=== PATIENT | female | born 1940 | race Caucasian/White ===

== ENCOUNTER 2021-02-04 12:34 | Inpatient (IN) | payer MEDICARE, OTHER, SELFPAY ==
[2021-02-04] VITALS (24 sets, daily range): BP systolic 58–149; BP diastolic 32–77; PULSE 92–118; RESP 17–32; TEMP 37.1–37.3; O2SAT 88–96; BMI 19.2
--- NOTE | 2021-02-04 12:42 | XRR_ITS ---
PROCEDURE INFORMATION: Exam: XR Chest Exam date and time: 02/04/2021 12:42 PM Age: 80 years old Clinical indication: Dyspnea; Patient HX: 80-year-old female presents emergency room altered mental status. She is found by EMS in the field report that her oxygen saturations 70% on 2 L she is poorly responsive initial blood pressure 50 over 40s. TECHNIQUE: Imaging protocol: XR of the chest. Views: 1 view. COMPARISON: CR Chest 1 [place] [id number] 08/29/2018 2:59 PM FINDINGS: Lungs: Right lung is well expanded and clear No consolidation. Pleural spaces: Unremarkable. No pleural effusion. There is a large left lung pneumothorax. Findings corresponds to 70% volume. Heart/Mediastinum: Unremarkable. No cardiomegaly. Bones/joints: Unremarkable. XR/XR chest 1V portable [id number] IMPRESSION: 1. Large left lung pneumothorax 2. Negative right lung
--- NOTE | 2021-02-04 12:42 | ECG_ITS ---
[facility] Test Date: 2021-02-04 Pat Name: Linda Whyte Department: Room: Gender: Female Bundle Collector: : 1940 Requested By: Jason Abbasi Order Number: [id number] Phil MD: Maryan Irene M.D. Measurements Intervals [place] Rate: 96 P: 79 MO: 137 QRS: 33 QRSD: 94 T: 87 QT: 361 QTc: 456 Interpretive Statements SINUS RHYTHM WITH OCCASIONAL VENTRICULAR PREMATURE COMPLEXES POSSIBLE RIGHT ATRIAL ENLARGEMENT [0.25mV P-WAVE] ANTEROSEPTAL MYOCARDIAL INFARCTION , OF INDETERMINATE AGE [40+ ms Q WAVE IN V1-V4] Compared to ECG 08/29/2018 20:20:35 Ventricular premature complex(es) now present Left-axis deviation no longer present Myocardial infarct finding still present Electronically Signed On 02-04-2021 17:51:34 AIR SHOVEL OPERATOR by Maryan Irene M.D. [id number]
--- NOTE | 2021-02-04 12:46 | ED_ITS ---
HPI - Altered Mental Status General: Chief Complaint: Altered Mental Status Stated Complaint: AMS, DIFF BREATHING Time Seen by Provider: 02/04/21 12:36 History of Present Illness: HPI narrative: 80-year-old female presents emergency room altered mental status. She is found by EMS in the field report that her oxygen saturations 70% on 2 L she is poorly responsive initial blood pressure 50 over 40s. She has fluids infusing. She is unable to give any history at this time no family members at the bedside initially. Later family members did arrive and reported that she had fallen 2 days ago. MD complaint: altered mental status and decreased responsiveness Onset (ago): day(s) Timing confirmed by: spouse Severity: severe Consistency of symptoms: Getting Worse Associated symptoms: Reports depression; Deny auditory hallucinations or visual hallucinations Review of Systems General: Reports: ROS unobtainable due to medical condition Psych: Reports: depression; Denies: visual hallucinations or auditory hallucinations PFS ED PFSH: Medical History (Updated 02/13/21 @ 07:00 by Temo Ibarra DO) Chronic kidney disease Social History (Updated 02/13/21 @ 06:53 by Temo Ibarra DO) Smoking and tobacco status: never smoked Alcohol intake: never Physical Exam Const: ORIENTATION/CONSCIOUSNESS: Yes awake, Yes oriented to person, Yes oriented to place and Yes oriented to time HENMT: COMMON NORMALS: normocephalic, atraumatic, hearing grossly normal bilaterally, external ears normal, EAC's normal, TM's normal bilaterally, Normal nasal mucous membranes and turbinates present, moist oral mucous membranes and oropharynx normal HEAD & SCALP: normocephalic and atraumatic NOSE: Normal nasal mucous membranes and turbinates present EXTERNAL EAR: Yes external ears normal EXTERNAL AUDITORY CANAL: EAC's normal TYMPANIC MEMBRANE: TM's normal bilaterally Neck/C-Spine: COMMON NORMALS: full ROM, no lymphadenopathy and supple Lymph: LYMPHATIC: no lymphadenopathy noted and no lymphedema noted Resp: AUSCULTATION: rhonchi right upper and right lower and diminished lung sounds on the left Cardio: RATE: tachycardic HEART SOUNDS: Murmur heart sound present systolic Location: right sternal border Intensity: II/ GI: COMMON NORMALS: No hepatosplenomegaly present AUSCULTATION: Yes normoactive bowel sounds PALPATION: Yes Tenderness to palpation present (GI), No Guarding due to palpation present (GI) and Yes No hepatosplenomegaly present Extremity: COMMON NORMALS: normal to inspection, capillary refill normal, no clubbing, cyanosis or edema, no calf tenderness and no pedal edema Neuro: SENSORIUM/ORIENTATION: Yes oriented to person, Yes oriented to place and Yes oriented to time Skin: COMMON NORMALS: no rashes or lesions noted GENERAL SKIN EXAM: no rashes or lesions noted Procedures Chest Tube Chest Tube 1: Chest Tube Location: left and mid axillary line Chest Tube Prep: Yes betadine prep and sterile drapes applied Local Anesthetic: lidocaine 1% Amount of anesthesia used (mL): 10 Incision Made With: #11 blade Post Procedure: sutured to skin and sterile dressing applied Tube Drainage: none Post Procedure CXR?: Yes Patient Tolerated Procedure: Yes Progress: Significant improvement in pneumothorax after placement of chest tube. Course Vital Signs: Vital signs: Vital Signs Temperature 97.5 F L 02/09/21 10:00 Pulse Rate 126 H 02/10/21 02:00 Respiratory Rate 24 H 02/10/21 02:00 Blood Pressure 108/65 02/10/21 02:00 Pulse Oximetry 97 02/10/21 02:00 MDM - Altered Mental Status MDM Narrative: Medical decision making narrative: Initially on arrival patient not to be septic was concerned she had a pneumonia chest x-ray actually showed a significant pneumothorax. Chest tube was placed in the left side which had good resolution of her pneumothorax and she did become more awake and responsive. Family arrived and reported a history of a recent fall which I suspect caused a pneumothorax. The one does to treat her but did not want her intubated. We have initiated antibiotics and IV pressors. She has received IV fluids pressure has improved. Currently she is on supplemental oxygen by mask. Suspect her deterioration acutely is related to the fall and pneumothorax with a tension pneumothorax causing hypotension and hypoxia this is resolved however I suspect she has an underlying sepsis as well as acute kidney injury. We will go ahead and admit her discussed with hospitalist orders are written. Labs and imaging reviewed liver enzymes elevated lactate 7.6. Initial troponin II 144. Lab Data: Labs: Lab Results 02/04/21 02/04/21 02/04/21 12:50 13:16 13:16 WBC RBC Hgb Hct MCV MCH MCHC RDW Plt Count MPV Neut % (Auto) Lymph % (Auto) [place] % (Auto) Eos % (Auto) Baso % (Auto) Neut # (Auto) Lymph # (Auto) [place] # (Auto) Eos # (Auto) Baso # (Auto) Nucleated RBC % (a uto) Nucleated RBCs # D-Dimer Specimen Type Arterial Sample Site Radial, right ABG pH 6.92 L* (7.35-7.45) ABG pCO2 85.4 mmHg H* mmHg (35-45) ABG pO2 133.0 mmHg H mmHg (80.0-100.0) ABG HCO3 17.6 mmol/L L mmo l/L (22-26) ABG O2 Saturation 96.5 ABG Base Excess -15.5 mmol/L L mm ol/L (-2.0-2.0) Santy Test Pos A-a O2 Gradient Not Reportable Hematocrit 33.5 % L % (37-47) Hgb O2 Saturation 94.7 % L % (95-100) Carboxyhemoglobin 0.8 %THgb %THgb (0.4-20.1) Methemoglobin 1.1 % % (0.4-1.5) Total Hemoglobin 10.9 g/dL L g/dL (12-16) Sodium 148.0 mmol/L H mm ol/L (131-143) Potassium 6.0 mmol/L H mmol /L (3.5-5.0) Glucose 81.0 mg/dL mg/dL (70-115) Ionized Calcium 1.3 mmol/L mmol/L (1.1-1.4) O2 Delivery Device Nrb O2 Liters/Min 12.0 % % Information Security ID Hensa Chloride Carbon Dioxide Anion Gap BUN Creatinine GFR Calculation Calculated Osmolal ity Lactic Acid 7.6 mmol/L H* mmo l/L (0.5-2.2) Calcium Total Bilirubin AST ALT Alkaline Phosphata se Troponin T Baselin e Troponin T 120 Min [place] Delta Troponin T Total Protein Albumin Globulin Lipase 25 U/L U/L (13-60) Influenza Type A A g Influenza Type B A g 02/04/21 02/04/21 02/04/21 13:16 13:16 13:16 WBC 19.8 10^3/uL H 10 ^3/uL (4.0-10.0) RBC 3.94 10^6/uL L 10 ^6/uL (4.1-5.3) Hgb 11.8 g/dL g/dL (11.5-15.3) Hct 39.7 % % (37.0-47.0) MCV 100.8 fl H fl (81-99) MCH 29.9 pg pg (28.0-34.0) MCHC 29.7 g/dL L g/dL (30.0-36.0) RDW 14.2 % % (12.1-15.1) Plt Count 412 10^3/cmm H 10 ^3/cmm (130-400) MPV 8.7 fL fL (7.4-10.4) Neut % (Auto) 86.4 % % Lymph % (Auto) 4.0 % % [place] % (Auto) 6.8 % % Eos % (Auto) 0.1 % % Baso % (Auto) 0.5 % % Neut # (Auto) 17.13 10^3/uL H 1 0^3/uL (1.8-7.7) Lymph # (Auto) 0.8 10^3/uL 10^3/ uL (0.8-4.8) [place] # (Auto) 1.4 10^3/uL H 10^ 3/uL (0.2-0.9) Eos # (Auto) 0.0 10^3/uL 10^3/ uL (0.0-0.8) Baso # (Auto) 0.1 10^3/uL 10^3/ uL (0.0-0.1) Nucleated RBC % (a uto) 0.1 % % Nucleated RBCs # 0.0 /100WBC /100W BC D-Dimer Specimen Type Sample Site ABG pH ABG pCO2 ABG pO2 ABG HCO3 ABG O2 Saturation ABG Base Excess Santy Test A-a O2 Gradient Hematocrit Hgb O2 Saturation Carboxyhemoglobin Methemoglobin Total Hemoglobin Sodium 146 mmol/L H mmol /L (136-145) Potassium 6.4 mmol/L H mmol /L (3.5-5.1) Glucose 85 mg/dL mg/dL (65-115) Ionized Calcium O2 Delivery Device O2 Liters/Min Information Security ID Chloride 108 mmol/L H mmol /L (98-107) Carbon Dioxide 16 mmol/L L mmol/ L (22-29) Anion Gap 28.4 H (5-19) BUN 62 mg/dL H mg/dL (8-23) Creatinine 2.5 mg/dL H mg/dL (0.5-0.9) GFR Calculation Not Reportable Calculated Osmolal ity 319 mOsm/kg H mOs m/kg (285-295) Lactic Acid Calcium 8.6 mg/dL mg/dL (8.5-10.5) Total Bilirubin 0.8 mg/dL mg/dL (0.15-1.2) AST 1889 U/L H U/L (0-32) ALT 1972 U/L H U/L (0-33) Alkaline Phosphata se 80 IU/L IU/L (35-105) Troponin T Baselin e 244 ng/L H* ng/L (0-10) Troponin T 120 Min [place] Delta Troponin T Total Protein 5.6 g/dL L g/dL (6.6-8.7) Albumin 3.5 g/dL g/dL (3.5-5.2) Globulin 2.1 g/dL g/dL (1.3-4.6) Lipase Influenza Type A A g Influenza Type B A g 02/04/21 02/04/21 02/04/21 13:30 15:34 15:34 WBC RBC Hgb Hct MCV MCH MCHC RDW Plt Count MPV Neut % (Auto) Lymph % (Auto) [place] % (Auto) Eos % (Auto) Baso % (Auto) Neut # (Auto) Lymph # (Auto) [place] # (Auto) Eos # (Auto) Baso # (Auto) Nucleated RBC % (a uto) Nucleated RBCs # D-Dimer 6.18 ug/mIFEU H u g/mIFEU (0-0.59) Specimen Type Sample Site ABG pH ABG pCO2 ABG pO2 ABG HCO3 ABG O2 Saturation ABG Base Excess Santy Test A-a O2 Gradient Hematocrit Hgb O2 Saturation Carboxyhemoglobin Methemoglobin Total Hemoglobin Sodium Potassium Glucose Ionized Calcium O2 Delivery Device O2 Liters/Min Information Security ID Chloride Carbon Dioxide Anion Gap BUN Creatinine GFR Calculation Calculated Osmolal ity Lactic Acid Calcium Total Bilirubin AST ALT Alkaline Phosphata se Troponin T Baselin e Troponin T 120 Min [place] 240.1 ng/L H ng/L (0-10) Delta Troponin T -3.9 ABS# L ABS# (0-10) Total Protein Albumin Globulin Lipase Influenza Type A A g Negative (Negative) Influenza Type B A g Negative (Negative) Critical Care Time Critical Care Time: Critical Care Time: Yes Total Critical Care Time: 45 Attestation: The high probability of a clinically significant, sudden or life threatening deterioration of the patient's [cardiorespiratory] system(s) required my full and direct attention, intervention and personal management. The critical care time is as shown. This time is in addition to time spent performing any reported procedures but includes the following: [x] Data and vital sign review and interpretation [x] Patient assessment, examination and intervention [x] Documentation [x] Medication orders and management Discharge Plan Discharge Patient Disposition: Admitted As Inpatient Admit Provider: Mason Green Clinical Impression: Tension pneumothorax, Respiratory failure with hypoxia and hypercapnia, Acute kidney injury superimposed on CKD, Elevated troponin, High transaminase levels, Metabolic acidosis, Lactic acidosis, Dementia Coding Level of Care Code ED Technical Advisor for Elsie Shearer
[2021-02-04] MEDS: sodium chloride 0.9% 1,000 ML 999 ML IV (12:49)
[2021-02-04] MEDS: vancomycin 1,000 MG in sodium chloride 0.9% 250 ML 250 MG IV ×2 (13:00→14:43)
[2021-02-04 13:03] LABS: Arterial Blood Gas Hematocrit 33.5 % (37-47); Base Excess ABG -15.5 mmol/L (-2.0-2.0); Blood Gas Allen Test Pos; Blood Gas Sample Site Radial, right; Blood Gas Sample Type Arterial; Carboxyhemoglobin 0.8 %THgb (0.4-20.1); HCO3 ABG 17.6 mmol/L (22-26); HGB O2 Sat 94.7 % (95-100); Ionized Calcium Level - ABG 1.3 mmol/L (1.1-1.4); Methemoglobin 1.1 % (0.4-1.5); Oxygen Device NRB; Oxygen Saturation ABG 96.5; Total Hemoglobin 10.9 g/dL (12-16)
--- NOTE | 2021-02-04 13:18 | PC.NURSE ---
Addendum entered by Suri Ely RN 02/04/21 18:13: Medication is Levophed Original Note: Increased by 2, rate 4mcg/min per protocol BP 90/32
[2021-02-04 13:27] LABS: Basophils # 0.1 10^3/uL (0.0-0.1); Basophils % 0.5 %; Eosinophils % 0.1 %; Hematocrit 39.7 % (37.0-47.0); Hemoglobin 11.8 g/dL (11.5-15.3); Lymphocytes # 0.8 10^3/uL (0.8-4.8); Mean Corpuscular HGB Conc 29.7 g/dL (30.0-36.0); Mean Corpuscular Hemoglobin 29.9 pg (28.0-34.0); Mean Corpuscular Volume 100.8 fl (81-99); Mean Platelet Volume 8.7 fL (7.4-10.4); Monocytes # 1.4 10^3/uL (0.2-0.9); Monocytes % 6.8 %; Neutrophils # 17.13 10^3/uL (1.8-7.7); Neutrophils % 86.4 %; Nucleated Red Blood Cells % 0.1 %; Platelet Count 412 10^3/cmm (130-400); Red Blood Count 3.94 10^6/uL (4.1-5.3); Red Cell Distribution Width 14.2 % (12.1-15.1); White Blood Count 19.8 10^3/uL (4.0-10.0)
--- NOTE | 2021-02-04 13:30 | PC.NURSE ---
Informed Dr Ibarra of BP 76/48 (57). Epi increased to 6mcg/min Dr Ibarra was pt MAP to 65
--- NOTE | 2021-02-04 13:41 | PC.NURSE ---
Increased Epi to 8mcg/min 90/54 manual BP.
--- NOTE | 2021-02-04 13:50 | PC.NURSE ---
BP 93/60 Map- 71 Epi at 8mcg/min
[2021-02-04 13:52] LABS: Albumin Level 3.5 g/dL (3.5-5.2); Alkaline Phosphatase 80 IU/L (35-105); Anion Gap 28.4 (5-19); Blood Urea Nitrogen 62 mg/dL (8-23); Calcium 8.6 mg/dL (8.5-10.5); Carbon Dioxide 16 mmol/L (22-29); Chloride 108 mmol/L (98-107); Globulin 2.1 g/dL (1.3-4.6); Glucose 85 mg/dL (65-115); Lipase 25 U/L (13-60); Osmolality Calculated 319 mOsm/kg (285-295); Potassium 6.4 mmol/L (3.5-5.1); Sodium 146 mmol/L (136-145); Total Bilirubin 0.8 mg/dL (0.15-1.2); Total Protein 5.6 g/dL (6.6-8.7)
[2021-02-04 13:54] LABS: Influenza A by IFA Negative (Negative); Influenza B by IFA Negative (Negative)
[2021-02-04 13:59] LABS: Lactic Sepsis W/Reflex 7.6 mmol/L (0.5-2.2); Troponin(5th) Baseline 244 ng/L (0-10)
[2021-02-04 14:03] LABS: Alanine Aminotransferase 1972 U/L (0-33)
[2021-02-04 14:04] LABS: Aspartate Amino Transferase 1889 U/L (0-32)
--- NOTE | 2021-02-04 14:36 | XR_ITS ---
WS: [id number] Exam: XR chest 1V portable [id number] Date/Time of Exam: 02/04/2021 2:36 PM Reason For Exam: chest tube placement Comparison with previous exam performed on the same day at 0141 hours. A left-sided chest tube is been placed and ends in the superior medial left pleural cavity. The previ ously noted left pneumothorax has resolved. There is still atelectasis noted in the left upper lobe a s well as the left lower lobe. Normal cardiomediastinal silhouette. The right lung is clear and fully expanded. Bony structures appear to be intact. XR/XR chest 1V portable [id number] IMPRESSION: 1. Resolved left-sided pneumothorax with thoracostomy tube ending in the superi or medial left pleural cavity. 2. Residual atelectasis in the upper and lower lobes of the left lung.
--- NOTE | 2021-02-04 14:42 | ECG_ITS ---
[facility] Test Date: 2021-02-04 Pat Name: Linda Whyte Department: Room: Gender: Female Facilities Painter: : 1940 Requested By: Jason Abbasi Order Number: [id number] Reading MD: Maryan Irene M.D. Measurements Intervals [place] Rate: 93 P: 86 SD: 140 QRS: 73 QRSD: 96 T: 76 QT: 356 QTc: 444 Interpretive Statements SINUS RHYTHM ANTEROSEPTAL MYOCARDIAL INFARCTION , OF INDETERMINATE AGE [40+ ms Q WAVE IN V1-V4] Compared to ECG 02/04/2021 13:32:46 Ventricular premature complex(es) no longer present Myocardial infarct finding still present Electronically Signed On 02-04-2021 17:56:15 COMPUTER SYSTEMS INFORMATION DIRECTOR by Maryan Irene M.D. [id number]
[2021-02-04] MEDS: piperacillin-tazobactam 3.375 GM in sodium chloride 0.9% (plus) 50 ML IV ×2 (14:44→20:31)
[2021-02-04] MEDS: fentaNYL 50 mcg/mL INJ 2mL 100 MCG IVP (14:44)
--- NOTE | 2021-02-04 14:45 | PC.NURSE ---
Dr Ibarra placed a 36 F Chest tube on left chest using sterile technique Pt taken off Bi PAP, put o NC at 2 lmps. Resting more comfortable.
--- NOTE | 2021-02-04 14:52 | PC.NURSE ---
Epi was stopped for procedure. Epi restarted at 1453 at 2mcg/min
--- NOTE | 2021-02-04 15:04 | PC.NURSE ---
BP 78/[address] Ibarra increased Epi to 4mgc/min.
[2021-02-04 15:09] LABS: Reflex Lactate Order REFLEX LACTIC ORDERD
[2021-02-04 16:10] LABS: D Dimer 6.18 ug/mIFEU (0-0.59)
[2021-02-04] MEDS: sodium bicarbonate 8.4% 1 mEq/mL 50mL Syr 100 MEQ IVP (16:45)
[2021-02-04] MEDS: calcium gluconate 0.1 gm/mL 10% SDV 10mL 2 GM IVP (16:45)
[2021-02-04 16:56] LABS: Troponin 5 2HR 240.1 ng/L (0-10); Troponin 5 2HR Delta -3.9 ABS# (0-10)
[2021-02-04 17:03] LABS: Lactic Acid level (Lactate) 3.7 mmol/L (0.5-2.2)
[2021-02-04 17:23] LABS: ABG PCO2 85.4 mmHg (35-45); ABG PH Result 6.92 (7.35-7.45)
--- NOTE | 2021-02-04 17:30 | PC.NURSE ---
Resting with lights off, family at bedside. Blood pressure improved 127/66 on 4 mgc/min Collected 7mls of urine
--- NOTE | 2021-02-04 17:45 | PM.HP ---
Providers/Chief Complaint Chief Complaint: AMS, DIFF BREATHING History of Present Illness Linda Whyte is a 80 year old female with no significant PMH was brought in after experiencing fall at home, upon arrival in the ER she was obtunded and was saturating was saturating in 70s was tachypenic as well as she severely hypotensive with SBP in 60s. She was worked up for aove mention complain. Pertinent Imaging studies : Xray chest : Large left lung pneumothorax, Rt lung field was normal. EKG: Sinus Rthym with PVC Pertinent Labs : WBC: 19.8T, H&H : 11.8/39.7 PLT : 412, Serum : 146, k: 6.4 , hco3: 16, BUN/SCR: 62/2.5, RBS:155, AST: 1889,ALT: 1972,ALP: 80, lactic acid: 7.6 , Troponin: Baseline : 244, 2h : 240, 2hd : -3.9 ,6h : 231 , Influenza and covid :Negative She received lt chest tube placement in the ER ,As fluid resuscitation was done as well as i.v abxs were given. Post chest tube placement xray chest :showed resolution on PTX. Review of Systems Narrative: limited due to current medical condition Card: Denies: palpitations, edema or swelling of feet/ankles Resp: Denies: wheezing or pain on inspiration GI: Denies: nausea, vomiting or diarrhea Musc: Denies: extremity pain or extremity swelling Neuro: Denies: headache(s), difficulty walking or confusion Medications/Allergies Home Medications Medication Instructions Recorded Confirmed Last Taken Type albuterol sulfate [Ventolin HFA] 2 puff INHALATION Q6H PRN 02/04/21 02/04/21 Unknown History diclofenac sodium 100 mg PO DAILY 02/04/21 02/04/21 Unknown History paroxetine HCl 30 mg PO DAILY 02/04/21 02/04/21 Unknown History potassium chloride 20 meq PO DAILY 02/04/21 02/04/21 Unknown History prednisone 20 mg PO DAILY 02/04/21 02/04/21 Unknown History Allergies Allergy/AdvReac Type Severity Reaction Status Date / Time No Known Allergies Allergy Verified 02/04/21 13:33 Vitals/I&O/Wt Last Vital Signs Temp 98.7 F 02/04/21 12:37 Pulse 113 H 02/04/21 17:00 Resp 18 02/04/21 17:00 BP 101/55 02/04/21 16:33 Pulse Ox 96 02/04/21 17:00 02/04/21 02/04/21 02/04/21 06:59 14:59 22:59 Intake Total 1428.81 / 1428.81 Balance 1428.81 / 1428.81 Weight last 48 hrs Weight 47.627 kg Physical Exam Narrative: EXAM NARRATIVE: Alert and awake HENMT: COMMON NORMALS: normocephalic and atraumatic HEAD & SCALP: normocephalic and atraumatic Chest: CHEST: Yes Symmetrical chest wall rise Resp: COMMON NORMALS: clear to auscultation bilaterally EFFORT & INSPECTION: Yes symmetric chest movement, Yes abnormal respiratory pattern, Yes tachypneic, Yes respiratory distress and Yes labored AUSCULTATION: clear to auscultation bilaterally Cardio: COMMON NORMALS: regular rate, regular rhythm, S1 normal heart sound present, S2 normal heart sound present, No gallops present (Cardio), No murmurs present (Cardio), No rub (Cardio) and Peripheral pulses 2+ throughout RATE: regular rate RHYTHM: regular rhythm HEART SOUNDS: S1 normal heart sound present and S2 normal heart sound present PERIPHERAL PULSES: Peripheral pulses 2+ throughout GI: COMMON NORMALS: Normal to inspection, nondistended, normoactive bowel sounds present, Soft to palpation, non-tender, No hepatosplenomegaly present and no masses AUSCULTATION: Yes normoactive bowel sounds PALPATION: Yes Soft to palpation and Yes No hepatosplenomegaly present RECTAL EXAM: deferred Extremity: COMMON NORMALS: no clubbing, cyanosis or edema and no pedal edema Data : 02/05/21 04:16 02/05/21 04:16 Micro: Microbiology 02/04/21 15:26 Blood Culture - Preliminary Blood SPECIMEN COLLECTED 02/04/21 15:34 Blood Culture - Preliminary Blood SPECIMEN COLLECTED A&P Assessment and plan (1) Shock: Status: Acute (2) Acute kidney injury superimposed on CKD: Status: Acute (3) Respiratory failure with hypoxia and hypercapnia: Status: Acute (4) Pneumothorax: Status: Acute (5) Elevated troponin: Status: Acute (6) High transaminase levels: Status: Acute (7) Metabolic acidosis: Status: Acute (8) Lactic acidosis: Status: Acute (9) Hypernatremia: Status: Acute (10) Acute metabolic encephalopathy: Status: Acute (11) Rhabdomyolysis: Status: Acute Additional A&P Information 80 year old female with no significant PMH was brought in after experiencing fall at home, upon arrival in the ER she was obtunded and was saturating was saturating in 70s was tachypenic as well as she severely hypotensive with SBP in 60s. #Shock : 2/2 Tension pneumothorax, as well as hypovolemic shock, cannot rule out possible contribution from sepsis. Follow blood culture Urine culture Lactic acid Procalcitonin Monitor serial chest x-ray S/p right chest tube placement, continue with IV hydration Currently on broad-spectrum antibiotics Continue Levophed for now #LAN on CKD stage III: Multifactorial, ATN secondary to acute hypotension, prerenal, rhabdomyolysis Continue IV hydration Monitor intake output Urine electrolytes Monitor BMP Renal ultrasound Avoid nephrotoxic Catheter in place Possible renal consult #Respiratory failure with hypoxia and hypercapnia: Secondary to tension pneumothorax #Acute metabolic encephalopathy with hypercapnia #Lactic acidosis: Possibly secondary to severe hypotension, acute ischemia mediated, cannot conclusively rule out contribution from sepsis #Mixed acidosis: Metabolic as well as respiratory: #Transaminitis: Follow ultrasound abdomen Hepatitis panel Some contribution from rhabdomyolysis As well as from LAN #Hypovolemic hypernatremia: Continue IV hydration with D5 half NS at 125 cc an hour #Rhabdomyolysis: Likely secondary to fall #Elevated troponin: Likely secondary to demand ischemia type II HI. No acute ST-T wave changes Follow 2D echo Telemetry monitoring Code Status:AND DVT PPX: On Heparin Attestations Medical Necessity Statement*: Patient needs to be in hospital for the management of shock.Anticipated LOS Greater then 2 Midnights. Time Spent in Patient Care: Greater than 35 minutes Critical Care Time: Critical Care Time (min): 100 Other Attestations: The high probability of a clinically significant, sudden or life threatening deterioration of the patient's [] system(s) required my full and direct attention, intervention and personal management. The critical care time is as shown. This time is in addition to time spent performing any reported procedures but includes the following: [x] Data and vital sign review and interpretation [x] Patient assessment, examination and intervention [x] Documentation [x] Medication orders and management Coding Level of Care Code Acute Motor Vehicle Or Caravan Salesperson for [facility] Fwd Exam Detailed Diagnoses Shock R57.9 Acute kidney injury superimposed on CKD N17.9; N18.9 Respiratory failure with hypoxia and hypercapnia J96.91; J96.92 Pneumothorax J93.9 Elevated troponin R77.8 High transaminase levels R74.01 Metabolic acidosis E87.2 Lactic acidosis E87.2 Hypernatremia E87.0 Acute metabolic encephalopathy G93.41 Rhabdomyolysis M62.82
[2021-02-04] MEDS: morphine 4 mg/mL SDV 1 mL 2 MG IVP (17:51)
[2021-02-04] MEDS: sodium chloride 0.9% 1,000 ML 100 ML IV (18:01)
[2021-02-04 18:10] LABS: Glucose Urine UA Norm (Normal); Protein Urine 3+ (Negative); Urine Appearance Hazy (CLEAR); Urine Color Yellow (Yellow); pH Urine 5 (5-7)
[2021-02-04 18:11] LABS: Add Urine Culture? Yes; Add Urine Microscopic? YES; Amorphous Sediment Urine 3+ /hpf; Bacteria Urine 2+ /hpf; Bilirubin Urine 1+ (Negative); Blood Urine 3+ (Negative); Ketones Urine Negative (Negative); Leukocyte Esterase Urine 1+ (Negative); Nitrate Urine Negative (Negative); RBC Urine 0-4 /hpf (0-2); Squamous Epithelial Cell Urine 0-4 /hpf (0-5); Urobilinogen Urine 1 mg/dL (Negative); WBC Urine 55-80 /hpf (0-5)
--- NOTE | 2021-02-04 18:12 | PC.NURSE ---
The medication that pt is on Levophed, NOT and Epi drip
--- NOTE | 2021-02-04 18:45 | PC.NURSE ---
1830 Pt arrived to ICU per stretcher with ER nurse at bedside. Connected to monitor, CT secured to floor and unclamped and connected to LWS per report from ER nurse. Report given to oncoming nurse.
--- NOTE | 2021-02-04 19:00 | PC.NURSE ---
[facility] Admission assessments completed. Patient is oriented to person only and is lethargic. All vital signs are stable at this time. Patient is tachycardic in the low 100's. Marie catheter in place and draining well. Left chest tube in place and connected to suction. Fluctuation present with respirations. Patient is resting calmly in bed.
[2021-02-04 19:06] LABS: Adenovirus Not Detected (NOT DETECT); Chlamydia Pneumoniae Not Detected (NOT DETECT); Coronavirus 229E,HKU1,NL63,OC4 Not Detected (NOT DETECT); Human Metapneumovirus Not Detected (NOT DETECT); Human Rhinovirus/Enterovirus Not Detected (NOT DETECT); Influenza A Not Detected (NOT DETECT); Influenza A H1 Not Detected (NOT DETECT); Influenza A H1-2009 Not Detected (NOT DETECT); Influenza A H3 Not Detected (NOT DETECT); Influenza B Not Detected (NOT DETECT); Mycoplasma Pneumoniae Not Detected (NOT DETECT); Parainfluenza Virus Type 1 Not Detected (NOT DETECT); Parainfluenza Virus Type 2 Not Detected (NOT DETECT); Parainfluenza Virus Type 3 Not Detected (NOT DETECT); Parainfluenza Virus Type 4 Not Detected (NOT DETECT); Respiratory Syncytial Virus A Not Detected (NOT DETECT); Respiratory Syncytial Virus B Not Detected (NOT DETECT); SARS-COV-2 Not Detected (NOT DETECT)
[2021-02-04 19:56] LABS: Anion Gap 27.1 (5-19); Blood Urea Nitrogen 65 mg/dL (8-23); Calcium 8.2 mg/dL (8.5-10.5); Carbon Dioxide 15 mmol/L (22-29); Chloride 111 mmol/L (98-107); Glucose 155 mg/dL (65-115); Osmolality Calculated 328 mOsm/kg (285-295); Potassium 5.1 mmol/L (3.5-5.1); Sodium 148 mmol/L (136-145)
[2021-02-04 20:00] LABS: Lactate (Lactic Acid level) 4.1 mmol/L (0.5-2.2); Troponin 5 6HR Delta -12.6 ng/L (0-12)
[2021-02-04 20:01] LABS: Troponin 5 6HR 231.4 ng/L (0-10)
[2021-02-04] MEDS: dextrose 5%-sod chloride 0.45% 1,000 ML 100 ML IV (20:23)
--- NOTE | 2021-02-04 20:45 | PC.NURSE ---
Dr. Pleitez notified of patient's lab results. Telephone order read back to hold insulin, d50, and kayelalate. Performed.
[2021-02-04 22:14] LABS: Anion Gap 23.8 (5-19); Blood Urea Nitrogen 69 mg/dL (8-23); Calcium 8.1 mg/dL (8.5-10.5); Carbon Dioxide 17 mmol/L (22-29); Chloride 111 mmol/L (98-107); Glucose 172 mg/dL (65-115); Osmolality Calculated 328 mOsm/kg (285-295); Potassium 4.8 mmol/L (3.5-5.1); Sodium 147 mmol/L (136-145)
[2021-02-05] VITALS (52 sets, daily range): BP systolic 112–170; BP diastolic 62–101; PULSE 103–117; RESP 16–33; TEMP 36.6–37.2; O2SAT 69–99
--- NOTE | 2021-02-05 02:06 | PC.NURSE ---
Patient continues to rest calmly in bed. All vital signs are stable. Patient remains tachycardic in the low 100's. Patient arouses with stimuli and is oriented to person and knows that she is in the hospital, but is unable to answer any other questions.
--- NOTE | 2021-02-05 05:00 | XRR_ITS ---
PROCEDURE INFORMATION: Exam: XR Chest Exam date and time: 02/05/2021 5:00 AM Age: 80 years old Clinical indication: Device placement; Patient HX: F/u left chest tube placement. ; Additional info: S/P lt chest tube placement for ptx TECHNIQUE: Imaging protocol: XR of the chest. Views: 1 view. COMPARISON: CR XR chest 1V portable [id number] 02/04/2021 2:32 PM FINDINGS: Tubes, catheters and devices: Thoracotomy tube on the left directed to the apex. Subtle airspace disease adjacent to the thoracotomy tube. No appreciable pneumothorax. Mild subcutaneous emphysema. Lungs: See Tubes, catheters and devices finding. Pleural spaces: See Tubes, catheters and devices finding. Heart/Mediastinum: Unremarkable. No cardiomegaly. Bones/joints: Unremarkable. XR/XR chest 1V portable [id number] IMPRESSION: Thoracotomy tube on the left directed to the apex. Subtle airspace disease adjacent to the thoracotomy tube. No appreciable pneumothorax. Mild subcutaneous emphysema.
[2021-02-05 05:15] LABS: Hematocrit 36.4 % (37.0-47.0); Hemoglobin 11.1 g/dL (11.5-15.3); Mean Corpuscular HGB Conc 30.5 g/dL (30.0-36.0); Mean Corpuscular Hemoglobin 29.8 pg (28.0-34.0); Mean Corpuscular Volume 97.6 fl (81-99); Mean Platelet Volume 9.4 fL (7.4-10.4); Platelet Count 288 10^3/cmm (130-400); Red Blood Count 3.73 10^6/uL (4.1-5.3); Red Cell Distribution Width 14.3 % (12.1-15.1)
[2021-02-05] MEDS: piperacillin-tazobactam 3.375 GM in sodium chloride 0.9% (plus) 50 ML IV ×2 (05:34→16:52)
[2021-02-05 05:46] LABS: Procalcitonin 6.31 ng/mL (0-0.5)
[2021-02-05 05:48] LABS: Lactic Sepsis W/Reflex 3.4 mmol/L (0.5-2.2)
[2021-02-05 05:51] LABS: Albumin Level 2.9 g/dL (3.5-5.2); Alkaline Phosphatase 78 IU/L (35-105); Anion Gap 24.9 (5-19); Calcium 8.1 mg/dL (8.5-10.5); Carbon Dioxide 16 mmol/L (22-29); Chloride 110 mmol/L (98-107); Glucose 151 mg/dL (65-115); Osmolality Calculated 330 mOsm/kg (285-295); Potassium 4.9 mmol/L (3.5-5.1); Sodium 146 mmol/L (136-145); Total Bilirubin 0.7 mg/dL (0.15-1.2); Total Protein 4.9 g/dL (6.6-8.7)
[2021-02-05 05:56] LABS: Blood Urea Nitrogen 83 mg/dL (8-23)
[2021-02-05 06:08] LABS: Alanine Aminotransferase 4140 U/L (0-33); Aspartate Amino Transferase 6550 U/L (0-32); Creatine Phosphokinase 2531 U/L (26-192)
[2021-02-05 06:31] LABS: Slide Review Slide Review Perform
[2021-02-05 06:33] LABS: Absolute Segmented Neutrophil 2.3 10/cmm (1.6-7.1); Anisocytosis 1+; Band Neutrophils Absolute 8.8 10^3/cmm (0.0-1.2); Eosinophils 0 %; Giant Platelets Trace; Lymphocytes 6 %; Lymphocytes Absolute 0.7 10^3/cmm (1.2-3.4); Platelet Estimate Normal (Normal); Segmented Neutrophils 19 %; Total Cells Counted 100 (0-100)
[2021-02-05 06:44] LABS: Reflex Lactate Order REFLEX LACTIC ORDERD
--- NOTE | 2021-02-05 07:10 | PC.NURSE ---
Report received, assessment completed. Pt resting in bed, pulled off leads. Leads and stickers replaced. Pt alert and oriented to self and place. Reoriented PRN. VSS. Pt able to follow all commands. smith cath draining freely to BSD. O2@4LNC. Denies any pain or SOB. Will monitor.
[2021-02-05 07:46] LABS: Lactic Acid level (Lactate) 2.2 mmol/L (0.5-2.2)
[2021-02-05] MEDS: sodium bicarbonate 650 mg Tablet 1300 MG PO ×3 (08:33→21:15)
[2021-02-05] MEDS: dextrose 5%-sod chloride 0.45% 1,000 ML 150 ML IV (09:17)
--- NOTE | 2021-02-05 09:58 | PC.CHAP ---
Pastoral Care Encounter/Spiritual Assessment Type of Contact [] Declined ship rigger apprentice visit [] Patient/Family/Request visit [] Outpatient visit [] Follow-up visit [] Physician referral [] Code/Alert [x] Routine visit [] Staff referral [] Actively dying [] Patient sleeping [x] Family support [] [] Out of room [] Palliative care [] [] Receiving care in room [] Pre-surgical visit [] Trauma [] Long length of stay [x] ICU visit [x] Other: patient not responsive to conversation.. family present.. doesnt like to be covered.. Relational/Emotional Strength [] Patient feels connected with others/family/visitors/staff [] Distress [] Loneliness/isolation [] Abandonment Spirituality of Patient [] Person of Malou [] Attends Alevism of their Malou [] Believes in Prayer [] Reads Bible or Pentecostalism materials [] There are Spiritual issues to be addressed Pattern Repair Person Interventions [x] Prayer [] Active listening [] Non-anxious presence [] Spiritual/emotional support [] Crisis/trauma care [] Spiritual counseling [] Bereavement support [] Provided bereavement packet [] Provided Bible/devotional materials [] Provided toy/stuffed animal, coloring book to patient or family member [] Provided Communion [] Anointing/[place] [] Salvation [x] Completed spiritual assessment [] Other: Impact on Illness or Injury [] Angry [] Fearful [] Anxious [] Often cries [] Exhaustion [] Unable to work [] Unable to attend pentecostal [] Unable to walk/stand [] Unable to read [] Unable to drive [] Unable to eat/drink [] Unable to sleep [] Unable to be with family [] Patient intubated [] Other: Summary Time spent with patient
[2021-02-05] MEDS: FUROsemide 10 mg/mL SDV 4mL 40 MG IVP (11:49)
[2021-02-05 12:48] LABS: Calcium 7.5 mg/dL (8.5-10.5); Carbon Dioxide 17 mmol/L (22-29); Chloride 108 mmol/L (98-107); Glucose 160 mg/dL (65-115); Osmolality Calculated 329 mOsm/kg (285-295); Sodium 144 mmol/L (136-145)
[2021-02-05 12:51] LABS: Blood Urea Nitrogen 91 mg/dL (8-23)
[2021-02-05 13:05] LABS: Creatine Phosphokinase 2618 U/L (26-192)
--- NOTE | 2021-02-05 13:23 | PM.PN ---
Subjective Subjective: Interval history: Patient was seen and examined this morning, continues to be critically ill, very poor urine output overnight, BUN serum creatinine has worsened, patient does shows uremic encephalopathy, Minimal bubbling noted in Pleur-evac. A.m. chest x-ray: No pneumothorax, minimal subcutaneous emphysema. A.m. ABG: pH 7.32, PCO2 40, PO2 83.3, FiO2 36% AST ALT has worsened, CPK is high 2D echo done: Results reviewed, ultrasound abdomen done: Reviewed Medications: Reviewed: Yes Vitals/I&O/Wt Last Vital Signs Temp 98.1 F 02/05/21 08:00 Pulse 116 H 02/05/21 08:30 Resp 24 H 02/05/21 08:30 BP 146/87 02/05/21 08:30 Pulse Ox 91 02/05/21 08:30 02/04/21 02/05/21 02/05/21 22:59 06:59 14:59 Intake Total 1784.944 / 5596.841 1024 / 3834.944 1135 / 1135 Output Total 100 / 100 25 / 125 Balance 1684.944 / 3268.047 0078 / 3709.944 1135 / 1135 Weight last 48 hrs Weight 47.627 kg Weight 47.627 kg Physical Exam Narrative: EXAM NARRATIVE: Alert and awake HENMT: COMMON NORMALS: normocephalic and atraumatic HEAD & SCALP: normocephalic and atraumatic Chest: CHEST: Yes Symmetrical chest wall rise Resp: EFFORT & INSPECTION: Yes symmetric chest movement, Yes abnormal respiratory pattern, Yes tachypneic, Yes respiratory distress and Yes labored OTHER: Coarse breath sounds B/L Cardio: COMMON NORMALS: regular rate, regular rhythm, S1 normal heart sound present, S2 normal heart sound present, No gallops present (Cardio), No murmurs present (Cardio), No rub (Cardio) and Peripheral pulses 2+ throughout RATE: regular rate RHYTHM: regular rhythm HEART SOUNDS: S1 normal heart sound present and S2 normal heart sound present PERIPHERAL PULSES: Peripheral pulses 2+ throughout GI: COMMON NORMALS: Normal to inspection, nondistended, normoactive bowel sounds present, Soft to palpation, non-tender, No hepatosplenomegaly present and no masses AUSCULTATION: Yes normoactive bowel sounds PALPATION: Yes Soft to palpation and Yes No hepatosplenomegaly present RECTAL EXAM: deferred Extremity: COMMON NORMALS: no clubbing, cyanosis or edema and no pedal edema Urinary Catheter Management^: Marie: Cath Placed During This Visit: yes Reason for Continuing Indwelling Catheter: Accurate Measurement of Urinary Output in Critically Ill Patients Urinary Catheter Date of Insertion: 02/04/21 Data : 02/05/21 04:16 02/05/21 12:03 Micro: Microbiology 02/04/21 15:26 Blood Culture - Preliminary Blood SPECIMEN COLLECTED 02/04/21 15:34 Blood Culture - Preliminary Blood SPECIMEN COLLECTED A&P Assessment and plan (1) Shock: Status: Acute (2) Acute kidney injury superimposed on CKD: Status: Acute (3) Respiratory failure with hypoxia and hypercapnia: Status: Acute (4) Pneumothorax: Status: Acute (5) Elevated troponin: Status: Acute (6) High transaminase levels: Status: Acute (7) Metabolic acidosis: Status: Acute (8) Lactic acidosis: Status: Acute (9) Hypernatremia: Status: Acute (10) Acute metabolic encephalopathy: Status: Acute (11) Rhabdomyolysis: Status: Acute Additional A&P Information 80 year old female with no significant PMH was brought in after experiencing fall at home, upon arrival in the ER she was obtunded and was saturating was saturating in 70s was tachypenic as well as she severely hypotensive with SBP in 60s. #Shock : 2/2 Tension pneumothorax, as well as hypovolemic shock, cannot rule out possible contribution from sepsis. Follow blood culture Urine culture Lactic acid Procalcitonin Monitor serial chest x-ray S/p right chest tube placement, continue with IV hydration Currently on broad-spectrum antibiotics Continue Levophed for now #LAN on CKD stage III: Multifactorial, ATN secondary to acute hypotension, prerenal, rhabdomyolysis Continue IV hydration Monitor intake output Urine electrolytes Monitor BMP Renal ultrasound Avoid nephrotoxic Catheter in place Possible renal consult #Respiratory failure with hypoxia and hypercapnia: Secondary to tension pneumothorax #Acute metabolic encephalopathy with hypercapnia, uremia #Lactic acidosis: Possibly secondary to severe hypotension, acute ischemia mediated, cannot conclusively rule out contribution from sepsis #Metabolic Acidosis: Secondary to LAN #Transaminitis: Follow ultrasound abdomen Hepatitis panel Some contribution from rhabdomyolysis As well as from LAN #Hypovolemic hypernatremia: Continue IV hydration with D5 half NS at 125 cc an hour #Rhabdomyolysis: Likely secondary to fall #Elevated troponin: Likely secondary to demand ischemia type II DE. No acute ST-T wave changes Follow 2D echo Telemetry monitoring Code Status:AND DVT PPX: On Heparin Attestations Medical Necessity Statement*: Patient is to be in hospital for management of above defined problems. Time Spent in Patient Care: Greater than 35 minutes Critical Care Time: Critical Care Time (min): 60 Other Attestations: The high probability of a clinically significant, sudden or life threatening deterioration of the patient's [] system(s) required my full and direct attention, intervention and personal management. The critical care time is as shown. This time is in addition to time spent performing any reported procedures but includes the following: [x] Data and vital sign review and interpretation [x] Patient assessment, examination and intervention [x] Documentation [x] Medication orders and management Coding Level of Care Code Acute Cable Television Program Director for g Fwd Exam Detailed Diagnoses Shock R57.9 Acute kidney injury superimposed on CKD N17.9; N18.9 Respiratory failure with hypoxia and hypercapnia J96.91; J96.92 Pneumothorax J93.9 Elevated troponin R77.8 High transaminase levels R74.01 Metabolic acidosis E87.2 Lactic acidosis E87.2 Hypernatremia E87.0 Acute metabolic encephalopathy G93.41 Rhabdomyolysis M62.82
--- NOTE | 2021-02-05 13:47 | P.CONIM_ITS ---
Providers/Reason For Consult Consulting Physician/Specialty*: milly leal md/ telenephrology Reason for Consult*: LAN Requesting Physician: Mason Green MD Attending Physician: Mason Green MD History of Present Illness History of Present Illness Linda Whyte is a 80 year old female admitted yesterdy w/ hypotension, confused, tachycardic, hypoxic. Pt ws admitted and dx w/ a tension pneumothorax. had a chest tube. she developed LAN, inc lfts. she required pressers. renal is called as she is confused, oliguric, and rising bun and cr. her bp has improved and she is off of pressers. she was first given fluids then lasix. she was found to hve rhabdomyolysis w/ ck approx 2600, Likely secondary to fall mild troop elevation. Review of Systems General: Reports: 10 or more systems reviewed and unremarkable except in HPI and below and ROS unobtainable due to mental status Narrative: confused, weak, sob, disoriented, cp, incontinence. not eating wel. she was on a NSAID at home. Meds/Allergies Home Medications and Allergies Home Medications Medication Instructions Recorded Confirmed Last Taken Type albuterol sulfate [Ventolin HFA] 2 puff INHALATION Q6H PRN 02/04/21 02/04/21 Unknown History diclofenac sodium 100 mg PO DAILY 02/04/21 02/04/21 Unknown History paroxetine HCl 30 mg PO DAILY 02/04/21 02/04/21 Unknown History potassium chloride 20 meq PO DAILY 02/04/21 02/04/21 Unknown History prednisone 20 mg PO DAILY 02/04/21 02/04/21 Unknown History Allergies Allergy/AdvReac Type Severity Reaction Status Date / Time No Known Allergies Allergy Verified 02/04/21 13:33 Current Medications Current Medications Generic Name Dose Route Start Last Admin Trade Name Freq PRN Reason Stop Dose Admin Norepinephrine Bitartrate 4 mg 254 mls @ 0 mls/hr 02/04/21 12:45 02/04/21 20:25 / Dextrose IV 0 mcg/min .Q0M ROSSY 0 mls/hr Titration Protocol Per Protocol Dextrose/Sodium Chloride 1,000 mls @ 125 mls/hr 02/04/21 17:30 02/05/21 11:15 Dextrose 5%-Sod Chloride 0.45% IV 125 mls/hr .Q8H ROSSY Infusion Piperacillin Sod/Tazobactam 50 mls @ 12.5 mls/hr 02/04/21 17:45 02/05/21 09:03 Sod 3.375 gm/ Sodium Chloride IV Infused Q12H ROSSY Infusion Protocol Morphine Sulfate 2 mg 02/04/21 16:57 02/04/21 17:51 Morphine 4 Mg/Ml Sdv 1 Ml IVP 2 mg Q4H PRN Administration SEVERE PAIN Sodium Bicarbonate 1,300 mg 02/05/21 09:00 02/05/21 08:33 Sodium Bicarbonate 650 Mg Tablet PO 1,300 mg TID ROSSY Administration Vitals/I&O/Wt Last Vital Signs Temp 98.1 F 02/05/21 08:00 Pulse 113 H 02/05/21 13:00 Resp 20 H 02/05/21 13:00 BP 147/94 02/05/21 13:00 Pulse Ox 91 02/05/21 13:00 02/04/21 02/05/21 02/05/21 22:59 06:59 14:59 Intake Total 1784.944 / 4682.033 6551 / 3834.944 1195 / 1195 Output Total 100 / 100 25 / 125 200 / 200 Balance 1684.944 / 6175.967 5516 / 3709.944 995 / 995 Weight last 48 hrs Weight 47.627 kg Weight 47.627 kg Physical Exam Narrative: EXAM NARRATIVE: ill, thin, female confused in bed in icu- she removed her oxygen, no pressers heent- eomi neck supple lungs chest tube, wheezes, crackles heart reg, + s1, s2 abd soft, nt, nd ext no edema neuro- confused Urinary Catheter Management^: Marie: Cath Placed During This Visit: yes Reason for Continuing Indwelling Catheter: Accurate Measurement of Urinary Output in Critically Ill Patients Urinary Catheter Date of Insertion: 02/04/21 Data Micro: Micro: Microbiology 02/04/21 15:26 Blood Culture - Pr eliminary Blood SPECIMEN JULI DEON 02/04/21 15:34 Blood Culture - Pr eliminary Blood SPECIMEN NICKY DEON A&P Additional A&P Information 80 year old female admitted on 02/04/21 after fall at home. she ws in shock on admission- s/p chest tube, fluids, bx. 1.LAN - normal renl fxn in pat -u/ noted- rbc, wbc, bcteria- q uti -send off serologies for possible RPGN -more likely ATN from hypotension -check renal us -ck is not high enough to cause ki Monitor intake output -monitor chemistries Avoid nephrotoxic Catheter in place -check abg -cont lasix -if severe acidosis- 7.3//80- monitor lasix. -i discussed risks and benefits of dialysis w/ pts husbnd and he consents -no emergent need for HD, and recent studies show no benefit to erly dialysis i nitiation 2. hypercapneic resp cidosis- repeat abg improoving 3. ams- check ammonia level 4 Transaminitis:likely shocked liver 5. Rhabdomyolysis: Likely secondary to fall -ck stable Consult Attestations Medical Necessity Statement: multi-organ failure Time Spent in Patient Care: Greater than 35 minutes (>than 50% of time spent in counselling and/or direct pt care on unit) . Coding Level of Care Code Acute Drain Tiler for Elsie Shearer
[2021-02-05 13:54] LABS: ABG PCO2 40.3 mmHg (35-45); ABG PH Result 7.32 (7.35-7.45); Alveolar-Arterial Oxygen Gradi 16.1 mmHg (5-10); Base Excess ABG -5.1 mmol/L (-2.0-2.0); Blood Gas Allen Test Pos; Blood Gas Operator Identificat BD; Blood Gas Sample Site Brachial, right; Blood Gas Sample Type Arterial; Carboxyhemoglobin 0.5 %THgb (0.4-20.1); HCO3 ABG 20.7 mmol/L (22-26); HGB O2 Sat 94.1 % (95-100); Ionized Calcium Level - ABG 1.1 mmol/L (1.1-1.4); Methemoglobin 1.1 % (0.4-1.5); Oxygen Device NC; Oxygen Saturation ABG 95.6; PO2 ABG 83.3 mmHg (80.0-100.0); Potassium Level - ABG 4.7 mmol/L (3.5-5.0); Total Hemoglobin 11.4 g/dL (12-16)
[2021-02-05] MEDS: FUROsemide 10 mg/mL SDV 10mL 60 MG IVP (14:37)
[2021-02-05 14:53] LABS: Uric Acid 12.6 mg/dL (2.4-5.7)
[2021-02-05 14:59] LABS: Hepatitis C Virus Antibody Non-Reactive (Nonreactive)
[2021-02-05 16:29] LABS: Potassium, Radom Urine 39 mmol/L; Urine Random Chloride 116 mmol/L; Urine Random Sodium 102 mmol/L
[2021-02-05] MEDS: heparin 5,000 unit/mL INJ 1 mL 5000 UNIT SUBCUT (16:52)
[2021-02-05] MEDS: dextrose 5%-sod chloride 0.45% 1,000 ML 125 ML IV (16:52)
--- NOTE | 2021-02-05 17:32 | PC.NURSE ---
Shift Note Frequent safety and comfort rounds continue. Orders and/or nursing care completed as indicated. Patient monitored for response to intervention and treatment(s). Education provided includes treatment plan including the possibility of dialysis, medications and need for continued hospitalization. and daughter verbalize understanding. VSS. Pt alert and oriented to self and place. reoriented PRN. Marie cath draining clear, light huang urine to BSD. Pt denies pain or SOB, lung sounds crackles noted throughout. MD aware and treating with IV Lasix. no other issues noted. Will continue to monitor.
--- NOTE | 2021-02-05 17:42 | US_ITS ---
WS: [id number] RIGHT UPPER QUADRANT ULTRASOUND HISTORY: ABNORMAL LIVER FUNCTION TEST COMPARISON: 08/29/2018 Liver: 13.5 cm in length. Small shrunken liver. Surface of the liver is very slightly nodular, simila r to the prior study. Suggesting early changes of cirrhosis. No mass or bile duct dilatation. Portal Vein: Normal hepatopetal flow with monophasic waveform. Gallbladder: Moderately distended gallbladder. Similar to the prior study. No wall thickening. No sto alan identified. CBD: 0.3 cm Pancreas: Poorly visualized. Right kidney: 9.9 cm in length. Mild renal atrophy and cortical thinning. No mass or hydronephrosis. Aorta and IVC: Unremarkable abdominal aorta and IVC. No ascites. US/US abdomen limited [id number] IMPRESSION: 1. Mildly hydropic gallbladder with no evidence for acute cholecystitis or wal l thickening. 2. No bile duct dilatation. 3. Early changes of mild cirrhosis identified. 4. Mild RIGHT renal atrophy.
[2021-02-05 18:29] LABS: Anion Gap 24.1 (5-19); Calcium 7.4 mg/dL (8.5-10.5); Carbon Dioxide 18 mmol/L (22-29); Chloride 110 mmol/L (98-107); Glucose 153 mg/dL (65-115); Osmolality Calculated 336 mOsm/kg (285-295); Potassium 5.1 mmol/L (3.5-5.1); Sodium 147 mmol/L (136-145)
[2021-02-05 18:35] LABS: Blood Urea Nitrogen 93 mg/dL (8-23)
--- NOTE | 2021-02-05 18:42 | USCV_ITS ---
Linda Whyte Age: 80 Gender: F : 1940 Exam Date: 02/05/2021 06:20 Ordering Phys: Mason Green MD Technologist: Exam Location: [facility] [place] Indication: SOB BP: 120 / 101 HR: 107 Rhythm: Sinus Technical Quality: Technically difficult study MEASUREMENTS (Male / Female) Normal Values 2D ECHO LV Diastolic Diameter PLAX 3.2 cm 4.2 - 5.9 / 3.9 - 5.3 cm LV Systolic Diameter PLAX 2.0 cm IVS Diastolic Thickness 0.9 cm 0.6 - 1.0 / 0.6 - 0.9 cm IVS Systolic Thickness 1.1 cm LVPW Diastolic Thickness 1.2 cm 0.6 - 1.0 / 0.6 - 0.9 cm LVPW Systolic Thickness 1.3 cm LVOT Diameter 2.0 cm LV Ejection Fraction 2D Teich 69.2 % LA Diameter 3.1 cm DOPPLER AV Peak Velocity 139.3 cm/s LVOT Peak Velocity 95.0 cm/s AV Area Cont Eq vti 2.7 cm squared AV Area Cont Eq pk 2.2 cm squared MV Area PHT 5.0 cm squared Mitral E to A Ratio 0.7 MV E' Velocity 48.0 cm/s TR Peak Velocity 325.0 cm/s TR Peak Gradient 42.3 mmHg TV Peak E Velocity 87.0 cm/s Right Atrial Pressure 3.0 mmHg Pulmonary Artery Systolic Pressu 45.3 mmHg FINDINGS Left Ventricle Limited quality echocardiogram because of poor ultrasonic windows. Grossly LV systolic function is normal. Diastolic function cannot be assessed because of tachycardia. Right Ventricle RV is dilated Right Atrium Grossly normal Left Atrium Grossly normal Mitral Valve Grossly normal Aortic Valve Grossly normal Tricuspid Valve Grossly normal. Mild tricuspid regurgitation. RVSP is 45-50mmhg that is consistent with moderate pulmonary hypertension Pulmonic Valve Not visualized Pericardium Trace pericardial effusion Aorta Grossly normal CONCLUSIONS This is technically limited quality echocardiogram because of poor ultrasonic windows. Grossly LV systolic function is normal. RV is dilated. No gross valvular abnormalities seen however limited visualization. Mild tricuspid regurgitation. RVSP is 45 to 50 mmHg consistent with moderate pulmonary hypertension. No comparison studies are available Raphael Richardson MD (Electronically Signed) Final Date: 05 February 2021 12:16 S
[2021-02-05 18:52] LABS: Creatine Phosphokinase 2492 U/L (26-192)
--- NOTE | 2021-02-05 19:57 | PC.NURSE ---
Report received from kadie WILSON. Patient is resting in bed with her family member at the bedside. Patient is tachycardic in the 110's and all other vital signs are stable. Marie catheter in place and draining well with clear pale yellow urine. IV fluids and zosyn infusing to R FA 20g. Left chest tube in place and tidaling present with respirations. Patient states that she is tired and just wants to rest. Patient denies any pain or requests at this time.
[2021-02-06] VITALS (40 sets, daily range): BP systolic 102–175; BP diastolic 63–120; PULSE 88–109; RESP 13–30; TEMP 36.7–36.8; O2SAT 78–98
--- NOTE | 2021-02-06 00:34 | PC.NURSE ---
SHIFT NOTE Patient resting in bed at this time. Patient denies any pain, needs, or requests. Patient is tachycardic in the 100's. All other vital signs are stable.
[2021-02-06 00:52] LABS: Anion Gap 23.5 (5-19); Calcium 7.2 mg/dL (8.5-10.5); Carbon Dioxide 19 mmol/L (22-29); Chloride 109 mmol/L (98-107); Glucose 143 mg/dL (65-115); Osmolality Calculated 333 mOsm/kg (285-295); Potassium 4.5 mmol/L (3.5-5.1); Sodium 147 mmol/L (136-145)
[2021-02-06 00:55] LABS: Blood Urea Nitrogen 88 mg/dL (8-23)
[2021-02-06 00:56] LABS: Creatine Phosphokinase 1783 U/L (26-192)
[2021-02-06] MEDS: FUROsemide 10 mg/mL SDV 10mL 60 MG IVP (02:10)
[2021-02-06] MEDS: dextrose 5%-sod chloride 0.45% 1,000 ML 125 ML IV ×2 (02:11→10:06)
[2021-02-06 04:51] LABS: Basophils % 0.1 %; Eosinophils % 0.1 %; Hematocrit 32.4 % (37.0-47.0); Hemoglobin 10.3 g/dL (11.5-15.3); Lymphocytes # 0.8 10^3/uL (0.8-4.8); Lymphocytes % 4.6 %; Mean Corpuscular HGB Conc 31.8 g/dL (30.0-36.0); Mean Corpuscular Hemoglobin 29.5 pg (28.0-34.0); Mean Corpuscular Volume 92.8 fl (81-99); Mean Platelet Volume 9.5 fL (7.4-10.4); Monocytes # 0.5 10^3/uL (0.2-0.9); Monocytes % 2.7 %; Neutrophils # 16.25 10^3/uL (1.8-7.7); Neutrophils % 91.6 %; Nucleated Red Blood Cells % 0.2 %; Platelet Count 219 10^3/cmm (130-400); Red Blood Count 3.49 10^6/uL (4.1-5.3); Red Cell Distribution Width 14.4 % (12.1-15.1); White Blood Count 17.7 10^3/uL (4.0-10.0)
[2021-02-06 05:03] LABS: Albumin Level 2.6 g/dL (3.5-5.2); Alkaline Phosphatase 82 IU/L (35-105); Anion Gap 23.3 (5-19); Calcium 7.2 mg/dL (8.5-10.5); Carbon Dioxide 19 mmol/L (22-29); Chloride 107 mmol/L (98-107); Globulin 2.2 g/dL (1.3-4.6); Glucose 136 mg/dL (65-115); Magnesium 1.9 mg/dL (1.7-2.3); Osmolality Calculated 331 mOsm/kg (285-295); Phosphorus 4.3 mg/dL (2.5-4.5); Potassium 4.3 mmol/L (3.5-5.1); Sodium 145 mmol/L (136-145); Total Bilirubin 0.8 mg/dL (0.15-1.2); Total Protein 4.8 g/dL (6.6-8.7)
[2021-02-06 05:05] LABS: Calcium 7.1 mg/dL (8.5-10.5); Vancomycin Random < 4.0 ug/mL (20.0-40.0)
[2021-02-06 05:10] LABS: Parathyroid Hormone 340.7 pg/mL (15-65)
[2021-02-06 05:11] LABS: Blood Urea Nitrogen 94 mg/dL (8-23); Creatine Phosphokinase 1406 U/L (26-192)
[2021-02-06 05:14] LABS: 25 Hydroxy Vitamin D 36 ng/mL (30-100)
[2021-02-06 05:16] LABS: Alanine Aminotransferase 2685 U/L (0-33)
[2021-02-06 05:17] LABS: Aspartate Amino Transferase 1917 U/L (0-32)
[2021-02-06] MEDS: heparin 5,000 unit/mL INJ 1 mL 5000 UNIT SUBCUT ×2 (05:39→17:13)
[2021-02-06] MEDS: piperacillin-tazobactam 3.375 GM in sodium chloride 0.9% (plus) 50 ML IV ×2 (05:39→17:13)
[2021-02-06 06:18] LABS: Slide Review Slide Review Perform
--- NOTE | 2021-02-06 07:05 | PC.NURSE ---
Report received. Assessment completed. VSS. Pt remains tachy and BP slightly elevated. PT denies pain or SOB. IVF and ABT infusing per orders. Pt AAOx3 this AM. Lung sounds with exp wheezing noted and crackles throughout. L ct in place, to LWS. Gentle fluctuation noted. Dressing c/d/i. Sanguinous drainage noted. Repositioned per staff. Oral fluids encouraged. Marie cath draining freely to BSD. Will monitor.
--- NOTE | 2021-02-06 07:59 | XRR_ITS ---
PROCEDURE INFORMATION: Exam: XR Chest Exam date and time: 02/06/2021 7:59 AM Age: 80 years old Clinical indication: Device placement; Chest tube; Additional info: Lt ptx S/P chest tube placement TECHNIQUE: Imaging protocol: XR of the chest. Views: 1 view. COMPARISON: CR XR chest 1V portable [id number] 02/05/2021 5:40 AM FINDINGS: Tubes, catheters and devices: A left chest tube is present in stable satisfactory position. Lungs: Small benign calcified granulomas are present in the left base. The lungs are otherwise clear. Pleural spaces: Unremarkable. No pleural effusion. No pneumothorax. Heart/Mediastinum: Unremarkable. No cardiomegaly. Bones/joints: Unremarkable. Soft tissues: There is a small amount of subcutaneous emphysema over the left side of the chest. XR/XR chest 1V portable [id number] IMPRESSION: 1. Satisfactory left chest tube position. No pneumothorax or pleural effusion. 2. No acute pulmonary infiltrates.
[2021-02-06] MEDS: sodium bicarbonate 650 mg Tablet 1300 MG PO (08:12)
--- NOTE | 2021-02-06 10:53 | PM.PN ---
Subjective Subjective: Interval history: Ms. Whyte remains comfortable today. Poor oral intake and she is obviously very weak. No acute distress, no acute issues overnight, hemodynamics reviewed and remained stable. Urine output picking up, 1700 mL. Vitals/I&O/Wt Last Vital Signs Temp 98.0 F 02/06/21 08:00 Pulse 89 02/06/21 09:00 Resp 18 02/06/21 09:00 BP 130/74 02/06/21 09:00 Pulse Ox 97 02/06/21 09:00 02/05/21 02/06/21 02/06/21 22:59 06:59 14:59 Intake Total 752.083 / 1848.414 2206 / 2947.083 1059.583 / 1059.583 Output Total 522 / 722 1418 / 2140 Balance 230.083 / 1225.083 -418 / 911.229 9412.583 / 1059.583 Weight last 48 hrs Weight 49.612 kg Weight 47.627 kg Weight 47.627 kg Physical Exam Narrative: EXAM NARRATIVE: Constitutional: Awake, comfortable HEENT: Wet mucosa, no jvp, non icteric Lungs: Bilaterally clear without discernible wheeze, rales in all lung zones CVS: S1 S2, no murmurs Abdo: Soft, BS ok Ext 4: Minimal edema, peripheral perfusion with no cyanosis Neurological: Grossly non-focal Urinary Catheter Management^: Marie: Cath Placed During This Visit: yes Reason for Continuing Indwelling Catheter: Accurate Measurement of Urinary Output in Critically Ill Patients Urinary Catheter Date of Insertion: 02/04/21 Data : 02/06/21 04:10 02/06/21 04:10 Micro: Microbiology 02/04/21 15:34 Blood Culture - Preliminary Blood Coagulase negativ staphylococc 02/04/21 17:33 Urine Culture - Preliminary Urine,Clean Catch Gram Negative Rods 02/04/21 21:30 MRSA Culture - Final Nose 02/04/21 15:26 Blood Culture - Preliminary Blood NEGATIVE TO DATE A&P Additional A&P Information 1. Acute kidney injury Likely related to infection and ischemic ATN. CPK too low to cause significant pigment nephropathy. Creatinine stable since yesterday and urine output picking up which is a good prognosticator. Close monitoring and high risk of needing hemodialysis. Strict I's and O's Continue liberal IV hydration No need for diuretics Avoid usual nephrotoxic agents Dose medication for GFR less than 50 2. Chemistry Minor noncritical aberration, No indication for alkalinization and I will discontinue sodium bicarb today. 3. Sepsis Coag negative staph in the blood likely contaminant, gram-negative rods in the urine, currently on antibiotics including Zosyn and status post vancomycin 4. Pneumothorax Chest tube per pulmonary team Thank you for consultation, as always it is a pleasure to follow these patients with you Griffin Reis MD Nephrology [phone] Patient seen and examined via telemedicine, with the assistance of the bedside RN > 25 min spent in evaluation and mgmt of patient Attestations Medical Necessity Statement*: Eval for LAN Coding Level of Care Code Acute Stock Handler Floorperson for Elsie Shearer
[2021-02-06 10:58] LABS: Calcium 7.1 mg/dL (8.5-10.5); Carbon Dioxide 21 mmol/L (22-29); Chloride 106 mmol/L (98-107); Creatinine Clr Calc Pharmacy 9.4575; Glucose 138 mg/dL (65-115); Osmolality Calculated 329 mOsm/kg (285-295); Sodium 144 mmol/L (136-145)
[2021-02-06 11:11] LABS: Blood Urea Nitrogen 93 mg/dL (8-23); Creatine Phosphokinase 969 U/L (26-192)
--- NOTE | 2021-02-06 11:11 | PM.PN ---
Subjective Subjective: Interval history: Patient was seen and examined this morning, a.m. chest x-ray showed no pneumothorax, small amount of subcutaneous emphysema, continues to saturate well on 4 L oxygen through nasal cannula, not in respiratory distress, WBC count has slightly trended up to 17 thousand, hypernatremia has resolved , BUN continues to be high at 93, serum creatinine likely has peaked at 3.8, had good urine output overnight, CPK is trending down, MRSA PCR is negative, vancomycin has been discontinued, blood culture continues to be negative. Metabolic acidosis is improving, AST ALT is improving Medications: Reviewed: Yes Vitals/I&O/Wt Last Vital Signs Temp 98.0 F 02/06/21 08:00 Pulse 89 02/06/21 09:00 Resp 18 02/06/21 09:00 BP 130/74 02/06/21 09:00 Pulse Ox 97 02/06/21 09:00 02/05/21 02/06/21 02/06/21 22:59 06:59 14:59 Intake Total 752.083 / 9172.446 6073 / 2947.083 1059.583 / 1059.583 Output Total 522 / 722 1418 / 2140 Balance 230.083 / 1225.083 -418 / 138.605 8542.583 / 1059.583 Weight last 48 hrs Weight 49.612 kg Weight 47.627 kg Weight 47.627 kg Physical Exam Narrative: EXAM NARRATIVE: Alert and awake HENMT: COMMON NORMALS: normocephalic and atraumatic HEAD & SCALP: normocephalic and atraumatic Chest: CHEST: Yes Symmetrical chest wall rise Resp: COMMON NORMALS: clear to auscultation bilaterally EFFORT & INSPECTION: Yes symmetric chest movement, Yes abnormal respiratory pattern, Yes tachypneic, Yes respiratory distress and Yes labored AUSCULTATION: clear to auscultation bilaterally OTHER: Coarse breath sounds B/L Cardio: COMMON NORMALS: regular rate, regular rhythm, S1 normal heart sound present, S2 normal heart sound present, No gallops present (Cardio), No murmurs present (Cardio), No rub (Cardio) and Peripheral pulses 2+ throughout RATE: regular rate RHYTHM: regular rhythm HEART SOUNDS: S1 normal heart sound present and S2 normal heart sound present PERIPHERAL PULSES: Peripheral pulses 2+ throughout GI: COMMON NORMALS: Normal to inspection, nondistended, normoactive bowel sounds present, Soft to palpation, non-tender, No hepatosplenomegaly present and no masses AUSCULTATION: Yes normoactive bowel sounds PALPATION: Yes Soft to palpation and Yes No hepatosplenomegaly present RECTAL EXAM: deferred Extremity: COMMON NORMALS: no clubbing, cyanosis or edema and no pedal edema Urinary Catheter Management^: Marie: Cath Placed During This Visit: yes Reason for Continuing Indwelling Catheter: Accurate Measurement of Urinary Output in Critically Ill Patients Urinary Catheter Date of Insertion: 02/04/21 Data : 02/06/21 04:10 02/06/21 10:30 Micro: Microbiology 02/04/21 15:34 Blood Culture - Preliminary Blood Coagulase negativ staphylococc 02/04/21 17:33 Urine Culture - Preliminary Urine,Clean Catch Gram Negative Rods 02/04/21 21:30 MRSA Culture - Final Nose 02/04/21 15:26 Blood Culture - Preliminary Blood NEGATIVE TO DATE A&P Assessment and plan (1) Shock: Status: Acute (2) Acute kidney injury superimposed on CKD: Status: Acute (3) Respiratory failure with hypoxia and hypercapnia: Status: Acute (4) Pneumothorax: Status: Acute (5) Elevated troponin: Status: Acute (6) High transaminase levels: Status: Acute (7) Metabolic acidosis: Status: Acute (8) Lactic acidosis: Status: Acute (9) Hypernatremia: Status: Acute (10) Acute metabolic encephalopathy: Status: Acute (11) Rhabdomyolysis: Status: Acute Additional A&P Information 80 year old female with no significant PMH was brought in after experiencing fall at home, upon arrival in the ER she was obtunded and was saturating was saturating in 70s was tachypenic as well as she severely hypotensive with SBP in 60s. #Shock : 2/2 Tension pneumothorax, as well as hypovolemic shock, cannot rule out possible contribution from sepsis. MRSA PCR negative Blood culture: 02/17: Coagulase-negative staph Urine culture: GNR Lactic acid: was elevated, Has normalized Procalcitonin: Initially elevated: It is improving : difficult to interpret in the presence of acute kidney injury. Monitor serial chest x-ray S/p right chest tube placement, continue with IV hydration Currently on broad-spectrum antibiotics was on Levophed has been discontinued #LAN on CKD stage III: Multifactorial, ATN secondary to acute hypotension, prerenal, rhabdomyolysis Continue IV hydration Monitor intake output Urine electrolytes Monitor BMP Renal ultrasound Avoid nephrotoxic Catheter in place Appreciate renal consult #Respiratory failure with hypoxia and hypercapnia: Secondary to tension pneumothorax #Acute metabolic encephalopathy with hypercapnia, uremia #Lactic acidosis: Possibly secondary to severe hypotension, acute ischemia mediated, cannot conclusively rule out contribution from sepsis #Metabolic Acidosis: Secondary to LAN #Transaminitis: Secondary to shock liver secondary to acute hypotension Ultrasound abdomen: no evidence for acute cholecystitis or wall thickening. No bile duct dilatation. Early changes of mild cirrhosis identified. Hepatitis panel: Hepatitis C antibody nonreactive Some contribution from rhabdomyolysis #Hypovolemic hypernatremia: Continue IV hydration with D5 half NS at 75 cc an hour #Rhabdomyolysis: Likely secondary to fall: Improving #UTI : Urine culture gram-negative rods: Pending identification #Elevated troponin: Likely secondary to demand ischemia type II [place]. No acute ST-T wave changes 2D echo: Grossly LV systolic function is normal. RV is dilated.Mild tricuspid regurgitation. RVSP is 45 to 50 mmHg consistent with moderate pulmonary hypertension. Telemetry monitoring Code Status:AND DVT PPX: On Heparin Attestations Medical Necessity Statement*: Patient needs to be in hospital for management of shock,LAN. Time Spent in Patient Care: Greater than 35 minutes Critical Care Time: Critical Care Time (min): 45 Other Attestations: The high probability of a clinically significant, sudden or life threatening deterioration of the patient's [] system(s) required my full and direct attention, intervention and personal management. The critical care time is as shown. This time is in addition to time spent performing any reported procedures but includes the following: [x] Data and vital sign review and interpretation [x] Patient assessment, examination and intervention [x] Documentation [x] Medication orders and management Coding Level of Care Code Acute Web Site Administrator for g Fwd Exam Detailed Diagnoses Shock R57.9 Acute kidney injury superimposed on CKD N17.9; N18.9 Respiratory failure with hypoxia and hypercapnia J96.91; J96.92 Pneumothorax J93.9 Elevated troponin R77.8 High transaminase levels R74.01 Metabolic acidosis E87.2 Lactic acidosis E87.2 Hypernatremia E87.0 Acute metabolic encephalopathy G93.41 Rhabdomyolysis M62.82
--- NOTE | 2021-02-06 15:00 | XRR_ITS ---
PROCEDURE INFORMATION: Exam: XR Chest Exam date and time: 02/06/2021 3:00 PM Age: 80 years old Clinical indication: Status post left chest tube placement for left pneumothorax. TECHNIQUE: Imaging protocol: XR of the chest. Views: 1 view. COMPARISON: CR XR chest 1V portable [id number] 02/06/2021 8:15 AM FINDINGS: Tubes, catheters and devices: A left-sided chest tube has been placed. Lungs: Calcified granulomata are again noted in the left lower lobe. The lungs are hyperinflated. No pulmonary consolidation. Pleural spaces: No pleural effusion. No pneumothorax. Heart/Mediastinum: The cardiac silhouette is unremarkable. No gross evidence of pneumomediastinum. Bones/joints: No gross fracture. XR/XR chest 1V portable [id number] IMPRESSION: 1. A left-sided chest tube is noted. No significant residual pneumothorax is seen. 2. The lungs appear hyperinflated; query COPD, asthma or other obstructive lung disease.
[2021-02-06 15:36] LABS: Anti-Nuclear Antibody Screen NEGATIVE (NEGATIVE)
--- NOTE | 2021-02-06 16:23 | PC.NURSE ---
Report given to Sherita WILSON.
[2021-02-06 19:12] LABS: Anion Gap 21.8 (5-19); Calcium 7.3 mg/dL (8.5-10.5); Carbon Dioxide 21 mmol/L (22-29); Chloride 105 mmol/L (98-107); Glucose 111 mg/dL (65-115); Osmolality Calculated 326 mOsm/kg (285-295); Potassium 3.8 mmol/L (3.5-5.1); Sodium 144 mmol/L (136-145)
[2021-02-06 19:14] LABS: Blood Urea Nitrogen 90 mg/dL (8-23); Creatine Phosphokinase 538 U/L (26-192)
[2021-02-07] VITALS (29 sets, daily range): BP systolic 118–181; BP diastolic 68–98; PULSE 73–88; RESP 16–36; TEMP 36.3–36.7; O2SAT 91–100
[2021-02-07 00:43] LABS: Anion Gap 22.3 (5-19); Calcium 7.1 mg/dL (8.5-10.5); Carbon Dioxide 21 mmol/L (22-29); Chloride 105 mmol/L (98-107); Glucose 116 mg/dL (65-115); Osmolality Calculated 330 mOsm/kg (285-295); Potassium 3.3 mmol/L (3.5-5.1); Sodium 145 mmol/L (136-145)
[2021-02-07 00:52] LABS: Blood Urea Nitrogen 93 mg/dL (8-23); Creatine Phosphokinase 352 U/L (26-192)
[2021-02-07] MEDS: dextrose 5%-sod chloride 0.45% 1,000 ML 75 ML IV (01:36)
[2021-02-07 04:04] LABS: Basophils % 0.1 %; Eosinophils # 0.1 10^3/uL (0.0-0.8); Eosinophils % 0.7 %; Hematocrit 32.5 % (37.0-47.0); Hemoglobin 10.6 g/dL (11.5-15.3); Lymphocytes # 0.9 10^3/uL (0.8-4.8); Lymphocytes % 4.7 %; Mean Corpuscular HGB Conc 32.6 g/dL (30.0-36.0); Mean Corpuscular Hemoglobin 29.8 pg (28.0-34.0); Mean Corpuscular Volume 91.3 fl (81-99); Mean Platelet Volume 9.9 fL (7.4-10.4); Monocytes # 0.7 10^3/uL (0.2-0.9); Monocytes % 3.8 %; Neutrophils # 16.68 10^3/uL (1.8-7.7); Neutrophils % 90.3 %; Nucleated Red Blood Cells % 0.1 %; Platelet Count 203 10^3/cmm (130-400); Red Blood Count 3.56 10^6/uL (4.1-5.3); Red Cell Distribution Width 14.4 % (12.1-15.1); White Blood Count 18.5 10^3/uL (4.0-10.0)
[2021-02-07 04:18] LABS: Albumin Level 2.6 g/dL (3.5-5.2); Alkaline Phosphatase 126 IU/L (35-105); Anion Gap 21.3 (5-19); Calcium 7.4 mg/dL (8.5-10.5); Carbon Dioxide 25 mmol/L (22-29); Chloride 104 mmol/L (98-107); Globulin 2.3 g/dL (1.3-4.6); Glucose 118 mg/dL (65-115); Magnesium 1.7 mg/dL (1.7-2.3); Osmolality Calculated 332 mOsm/kg (285-295); Phosphorus 3.8 mg/dL (2.5-4.5); Potassium 3.3 mmol/L (3.5-5.1); Sodium 147 mmol/L (136-145); Total Protein 4.9 g/dL (6.6-8.7)
[2021-02-07 04:33] LABS: Alanine Aminotransferase 2037 U/L (0-33)
[2021-02-07 04:44] LABS: Blood Urea Nitrogen 88 mg/dL (8-23); Creatinine Clr Calc Pharmacy 9.4575
[2021-02-07 04:45] LABS: Aspartate Amino Transferase 819 U/L (0-32)
--- NOTE | 2021-02-07 05:00 | XRR_ITS ---
PROCEDURE INFORMATION: Exam: XR Chest Exam date and time: 02/07/2021 5:00 AM Age: 80 years old Clinical indication: Condition or disease; Lung condition and disease; Pneumothorax; Additional info: S/P lt chest tube placement, for lt ptx TECHNIQUE: Imaging protocol: XR of the chest. Views: 1 view. Total images: 1 COMPARISON: CR XR chest 1V portable [id number] 02/06/2021 3:01 PM FINDINGS: Tubes, catheters and devices: Left chest tube is again noted and is unchanged in position. Lungs: Coarse chronic pulmonary markings. Benign granulomatous disease of the lung is noted. Pleural spaces: No pneumothorax. Heart/Mediastinum: Unremarkable. No cardiomegaly. Vasculature: Atherosclerosis is evident. Bones/joints: Osseous structures are unchanged from the prior exam. Diffuse osteopenia noted. XR/XR chest 1V portable [id number] IMPRESSION: 1. Coarse chronic pulmonary markings. 2. Left chest tube is again noted and is unchanged in position. 3. No pneumothorax.
[2021-02-07 05:03] LABS: Creatine Phosphokinase 276 U/L (26-192)
[2021-02-07] MEDS: heparin 5,000 unit/mL INJ 1 mL 5000 UNIT SUBCUT ×2 (05:07→16:53)
[2021-02-07] MEDS: piperacillin-tazobactam 3.375 GM in sodium chloride 0.9% (plus) 50 ML IV ×2 (05:07→16:53)
[2021-02-07] MEDS: dextrose 5% 1,000 ML 75 ML IV (08:57)
--- NOTE | 2021-02-07 09:21 | PC.SOCIAL ---
IM follow up explained and copy provided no questions voiced and verbalized understanding.
[2021-02-07] MEDS: acetaminophen 325 mg Tablet 650 MG PO (09:32)
--- NOTE | 2021-02-07 09:34 | PC.NURSE ---
[id number] Dr. Green at bedside. Patient c/o of chest pain. Orders to give Tylenol. Potassium level reported to Dr. Green. Orders for PO replacement.
[2021-02-07] MEDS: potassium chloride ER 20 mEq Tablet 40 MEQ PO (11:00)
--- NOTE | 2021-02-07 11:05 | P.PN_ITS ---
Subjective Subjective: Interval history: Patient was seen and examined this morning, a.m. chest x-ray showed no pneumothorax, small amount of subcutaneous emphysema, continues to saturate well on 4 L oxygen through nasal cannula, not in respiratory distress. Yesterday Pleur-evac was placed to waterseal, to be hooked back to LIS, due to small persistent leak. WBC count has slightly trended up to 18.5 thousand, Continue to have good urine output, diuretics has been discontinued. IV hydration changed to D5 water at a rate of 75 cc an hour. Blood culture has grown: 1 out of 3 coagulase-negative staph, urine culture E. coli. Medications: Reviewed: Yes Vitals/I&O/Wt Last Vital Signs Temp 979 F H 02/07/21 04:47 Pulse 88 02/07/21 06:11 Resp 20 H 02/07/21 04:47 BP 155/77 02/07/21 04:47 Pulse Ox 98 02/07/21 04:47 02/06/21 02/07/21 02/07/21 22:59 06:59 14:59 Intake Total 985 / 2186.250 403.333 / 2589.583 Output Total 2115 / 2115 1215 / 3330 Balance -1130 / 71.250 -811.667 / -740.417 Weight last 48 hrs Weight 49.612 kg Physical Exam Narrative: EXAM NARRATIVE: Alert and awake HENMT: COMMON NORMALS: normocephalic and atraumatic HEAD & SCALP: normocephalic and atraumatic Chest: CHEST: Yes Symmetrical chest wall rise Resp: COMMON NORMALS: clear to auscultation bilaterally EFFORT & INSPECTION: Yes symmetric chest movement AUSCULTATION: clear to auscultation bilaterally Cardio: COMMON NORMALS: regular rate, regular rhythm, S1 normal heart sound present, S2 normal heart sound present, No gallops present (Cardio), No murmurs present (Cardio), No rub (Cardio) and Peripheral pulses 2+ throughout RATE: regular rate RHYTHM: regular rhythm HEART SOUNDS: S1 normal heart sound present and S2 normal heart sound present PERIPHERAL PULSES: Peripheral pulses 2+ throughout GI: COMMON NORMALS: Normal to inspection, nondistended, normoactive bowel sounds present, Soft to palpation, non-tender, No hepatosplenomegaly present and no masses AUSCULTATION: Yes normoactive bowel sounds PALPATION: Yes Soft to palpation and Yes No hepatosplenomegaly present RECTAL EXAM: deferred Extremity: COMMON NORMALS: no clubbing, cyanosis or edema and no pedal edema Urinary Catheter Management^: Marie: Cath Placed During This Visit: yes Reason for Continuing Indwelling Catheter: Accurate Measurement of Urinary Output in Critically Ill Patients Urinary Catheter Date of Insertion: 02/04/21 Data : 02/07/21 03:17 02/07/21 03:17 Micro: Microbiology 02/04/21 17:33 Urine Culture - Final Urine,Clean Catch Escherichia coli 02/04/21 15:34 Blood Culture - Preliminary Blood Coagulase negativ staphylococc A&P Assessment and plan (1) Shock: Status: Acute (2) Acute kidney injury superimposed on CKD: Status: Acute (3) Respiratory failure with hypoxia and hypercapnia: Status: Acute (4) Pneumothorax: Status: Acute (5) Elevated troponin: Status: Acute (6) High transaminase levels: Status: Acute (7) Metabolic acidosis: Status: Acute (8) Lactic acidosis: Status: Acute (9) Hypernatremia: Status: Acute (10) Acute metabolic encephalopathy: Status: Acute (11) Rhabdomyolysis: Status: Acute Additional A&P Information 80 year old female with no significant PMH was brought in after experiencing fall at home, upon arrival in the ER she was obtunded and was saturating was saturating in 70s was tachypenic as well as she severely hypotensive with SBP in 60s. #Shock : 2/2 Tension pneumothorax, as well as hypovolemic shock, cannot rule out possible contribution from sepsis. MRSA PCR negative Blood culture: 02/17: Coagulase-negative staph Urine culture: GNR : E. coli: Pansensitive Lactic acid: was elevated, Has normalized Procalcitonin: Initially elevated: It is improving : difficult to interpret in the presence of acute kidney injury. Monitor serial chest x-ray S/p right chest tube placement, continue with IV hydration Currently on broad-spectrum antibiotics was on Levophed has been discontinued #LAN on CKD stage III: Multifactorial, ATN secondary to acute hypotension, prerenal, rhabdomyolysis Continue IV hydration Monitor intake output Urine electrolytes Monitor BMP Renal ultrasound: Mild RIGHT renal atrophy. Avoid nephrotoxic Catheter in place Appreciate renal consult #Sepsis Coag negative staph in the blood likely contaminant, gram-negative rods in the urine, currently on Zosyn. She was on Vanco has been discontinued now. #Respiratory failure with hypoxia and hypercapnia: Secondary to tension pneumothorax #Acute metabolic encephalopathy with hypercapnia, uremia #Lactic acidosis: Possibly secondary to severe hypotension, acute ischemia mediated, cannot conclusively rule out contribution from sepsis #Metabolic Acidosis: Secondary to LAN #Transaminitis: Secondary to shock liver secondary to acute hypotension Ultrasound abdomen: no evidence for acute cholecystitis or wall thickening. No bile duct dilatation. Early changes of mild cirrhosis identified. Hepatitis panel: Hepatitis C antibody nonreactive Some contribution from rhabdomyolysis #Hypovolemic hypernatremia: Continue IV hydration with D5 water at 75 cc an hour. Monitor BMP #Rhabdomyolysis: Likely secondary to fall: Improving #UTI : Urine culture gram-negative rods: Pending identification #Elevated troponin: Likely secondary to demand ischemia type II [place]. No acute ST-T wave changes 2D echo: Grossly LV systolic function is normal. RV is dilated.Mild tricuspid regurgitation. RVSP is 45 to 50 mmHg consistent with moderate pulmonary hypertension. Telemetry monitoring Code Status:AND DVT PPX: On Heparin Attestations Medical Necessity Statement*: Patient is to be in hospital for management of above defined problems. Time Spent in Patient Care: Greater than 35 minutes Critical Care Time: Critical Care Time (min): 40 Other Attestations: The high probability of a clinically significant, sudden or life threatening deterioration of the patient's [] system(s) required my full and direct attention, intervention and personal management. The critical care time is as shown. This time is in addition to time spent performing any reported procedures but includes the following: [x] Data and vital sign review and interpretation [x] Patient assessment, examination and intervention [x] Documentation [x] Medication orders and management Coding Level of Care Code Acute Event Marketing Manager for g Fwd Exam Detailed Diagnoses Shock R57.9 Acute kidney injury superimposed on CKD N17.9; N18.9 Respiratory failure with hypoxia and hypercapnia J96.91; J96.92 Pneumothorax J93.9 Elevated troponin R77.8 High transaminase levels R74.01 Metabolic acidosis E87.2 Lactic acidosis E87.2 Hypernatremia E87.0 Acute metabolic encephalopathy G93.41 Rhabdomyolysis M62.82
--- NOTE | 2021-02-07 11:29 | P.PN_ITS ---
Subjective Subjective: Interval history: No acute events she feels ok, very weak, minimal oral intake. No edema and no other volume related Sx. Hemodynamics remain stable. Robust urine output is ntoed Medications: Reviewed: Yes Vitals/I&O/Wt Last Vital Signs Temp 979 F H 02/07/21 04:47 Pulse 88 02/07/21 06:11 Resp 20 H 02/07/21 04:47 BP 155/77 02/07/21 04:47 Pulse Ox 98 02/07/21 04:47 02/06/21 02/07/21 02/07/21 22:59 06:59 14:59 Intake Total 985 / 2186.250 403.333 / 2589.583 Output Total 2115 / 2115 1215 / 3330 Balance -1130 / 71.250 -811.667 / -740.417 Weight last 48 hrs Weight 49.612 kg Physical Exam Narrative: EXAM NARRATIVE: Constitutional: Awake, comfortable HEENT: Wet mucosa, no jvp, non icteric Lungs: Bilaterally clear without discernible wheeze, rales in all lung zones CVS: S1 S2, no murmurs Abdo: Soft, BS ok Ext 4: Minimal edema, peripheral perfusion with no cyanosis Neurological: Grossly non-focal Urinary Catheter Management^: Marie: Cath Placed During This Visit: yes Reason for Continuing Indwelling Catheter: Accurate Measurement of Urinary Output in Critically Ill Patients Urinary Catheter Date of Insertion: 02/04/21 Data : 02/07/21 03:17 02/07/21 03:17 Micro: Microbiology 02/04/21 17:33 Urine Culture - Final Urine,Clean Catch Escherichia coli 02/04/21 15:34 Blood Culture - Preliminary Blood Coagulase negativ staphylococc A&P Additional A&P Information 1. Acute kidney injury Likely related to infection and ischemic ATN. CPK too low to cause significant pigment nephropathy. Creatinine stable since yesterday and urine output picking up which is a good prognosticator. Strict I's and O's Continue ivf No need for diuretics Avoid usual nephrotoxic agents Dose medication for GFR less than 50 2. Chemistry Minor noncritical aberration, No indication for alkalinization and I will discontinue sodium bicarb today. 3. Sepsis Coag negative staph in the blood likely contaminant, gram-negative rods in the urine, currently on antibiotics including Zosyn and status post vancomycin 4. Pneumothorax Chest tube per pulmonary team Thank you for consultation, as always it is a pleasure to follow these patients with you Griffin Reis MD Nephrology [phone] Patient seen and examined via telemedicine, with the assistance of the bedside RN > 25 min spent in evaluation and mgmt of patient Attestations Medical Necessity Statement*: Eval for LAN Coding Level of Care Code Acute Climbing Guide for Chg Manfred
[2021-02-07 12:02] LABS: Glomerular Bsmt Membrane IGG <1.0 AI
[2021-02-07] MEDS: ondansetron 2 mg/ML SDV 2 mL 4 MG IVP (16:53)
[2021-02-07 18:30] LABS: Anion Gap 18.5 (5-19); Calcium 7.4 mg/dL (8.5-10.5); Carbon Dioxide 25 mmol/L (22-29); Chloride 102 mmol/L (98-107); Creatine Phosphokinase 114 U/L (26-192); Glucose 116 mg/dL (65-115); Osmolality Calculated 320 mOsm/kg (285-295); Potassium 3.5 mmol/L (3.5-5.1); Sodium 142 mmol/L (136-145)
[2021-02-07 18:45] LABS: Blood Urea Nitrogen 83 mg/dL (8-23)
[2021-02-08] VITALS (37 sets, daily range): BP systolic 117–164; BP diastolic 63–86; PULSE 75–97; RESP 16–26; TEMP 36.4–36.6; O2SAT 93–99; BMI 20.1
[2021-02-08] MEDS: dextrose 5% 1,000 ML 50 ML IV (01:55)
[2021-02-08 04:13] LABS: Basophils % 0.1 %; Eosinophils # 0.3 10^3/uL (0.0-0.8); Eosinophils % 1.3 %; Hematocrit 33.1 % (37.0-47.0); Hemoglobin 10.7 g/dL (11.5-15.3); Lymphocytes # 0.9 10^3/uL (0.8-4.8); Lymphocytes % 4.4 %; Mean Corpuscular HGB Conc 32.3 g/dL (30.0-36.0); Mean Corpuscular Hemoglobin 29.6 pg (28.0-34.0); Mean Corpuscular Volume 91.4 fl (81-99); Mean Platelet Volume 10.3 fL (7.4-10.4); Neutrophils # 18.06 10^3/uL (1.8-7.7); Neutrophils % 88.6 %; Nucleated Red Blood Cells % 0 %; Platelet Count 166 10^3/cmm (130-400); Red Blood Count 3.62 10^6/uL (4.1-5.3); Red Cell Distribution Width 14.7 % (12.1-15.1); White Blood Count 20.4 10^3/uL (4.0-10.0)
[2021-02-08 04:30] LABS: Albumin Level 2.6 g/dL (3.5-5.2); Alkaline Phosphatase 140 IU/L (35-105); Blood Urea Nitrogen 80 mg/dL (8-23); Calcium 7.7 mg/dL (8.5-10.5); Carbon Dioxide 27 mmol/L (22-29); Chloride 104 mmol/L (98-107); Globulin 2.3 g/dL (1.3-4.6); Glucose 89 mg/dL (65-115); Magnesium 1.5 mg/dL (1.7-2.3); Osmolality Calculated 320 mOsm/kg (285-295); Phosphorus 3.4 mg/dL (2.5-4.5); Sodium 143 mmol/L (136-145); Total Bilirubin 1.1 mg/dL (0.15-1.2); Total Protein 4.9 g/dL (6.6-8.7)
[2021-02-08 04:43] LABS: Slide Review Slide Review Perform
[2021-02-08 04:44] LABS: Alanine Aminotransferase 1357 U/L (0-33)
[2021-02-08 04:50] LABS: Aspartate Amino Transferase 331 U/L (0-32)
[2021-02-08] MEDS: heparin 5,000 unit/mL INJ 1 mL 5000 UNIT SUBCUT ×2 (05:32→17:17)
[2021-02-08] MEDS: piperacillin-tazobactam 3.375 GM in sodium chloride 0.9% (plus) 50 ML IV ×2 (05:33→17:18)
--- NOTE | 2021-02-08 07:27 | P.PN_ITS ---
Subjective Subjective: Interval history: eating breakfast, states she feels better Medications: Reviewed: Yes Vitals/I&O/Wt Last Vital Signs Temp 97.6 F 02/08/21 04:00 Pulse 88 02/08/21 07:00 Resp 21 H 02/08/21 07:00 BP 164/86 02/08/21 07:00 Pulse Ox 93 02/08/21 07:00 02/07/21 02/08/21 02/08/21 22:59 06:59 14:59 Intake Total 978.75 / 1228.75 393.25 / 1622.00 Output Total 810 / 810 1010 / 1820 Balance 168.75 / 418.75 -616.75 / -198.00 Weight last 48 hrs Weight 49.986 kg Weight 49.612 kg Physical Exam Urinary Catheter Management^: Marie: Cath Placed During This Visit: yes Reason for Continuing Indwelling Catheter: Accurate Measurement of Urinary Output in Critically Ill Patients Urinary Catheter Date of Insertion: 02/04/21 Data : 02/08/21 03:32 02/08/21 03:32 Other Labs: LFTs improving Micro: Microbiology 02/04/21 17:33 Urine Culture - Final Urine,Clean Catch Escherichia coli A&P Additional A&P Information seen via telemedicine with assistance of RN at bedside 1. Acute kidney injury: urine output improving, BUN/Cr stable - no indications for dialysis 2. Urosepsis, pansensitive e.coli Attestations Medical Necessity Statement*: see above Time Spent in Patient Care: less than 15 minutes Coding Level of Care Code Acute Mail Handlers Supervisor for Elsie Shearer
--- NOTE | 2021-02-08 07:59 | XRR_ITS ---
PROCEDURE INFORMATION: Exam: XR Chest Exam date and time: 02/08/2021 7:59 AM Age: 80 years old Clinical indication: Device placement; Chest tube; Prior surgery; Additional info: Lt ptx S/P lt chest tube placement TECHNIQUE: Imaging protocol: XR of the chest. Views: 1 view. Total images: 1 COMPARISON: CR XR chest 1V portable [id number] 02/07/2021 5:34 AM FINDINGS: Tubes, catheters and devices: Left chest tube unchanged. Lungs: Unremarkable. No consolidation. Pleural spaces: Tiny residual left pneumothorax. Heart/Mediastinum: Unremarkable. No cardiomegaly. Bones/joints: Osseous structures are unchanged from the prior exam. XR/XR chest 1V portable [id number] IMPRESSION: 1. Left chest tube unchanged. 2. Tiny residual left pneumothorax.
[2021-02-08 10:14] LABS: Vit D 1,25 (Oh)2, Total 11 pg/mL (18-72); Vit D2 1,25 (Oh)2 <8 pg/mL; Vit D3 1,25 (Oh)2 11 pg/mL
[2021-02-08] MEDS: magnesium sulfate premix 2 GM/50 ML PIGGYBACK IV (10:26)
[2021-02-08] MEDS: acetaminophen 325 mg Tablet 650 MG PO (16:18)
--- NOTE | 2021-02-08 17:50 | P.PN_ITS ---
Subjective Subjective: Interval history: Patient was seen and examined this morning, chest tube is water seal only, intermittent air leak seen, a.m. chest x-ray: Shows very small pneumothorax, minimal subcutaneous emphysema, patient continues to saturate well on 2 Ls oxygen through nasal cannula. Continues to have good urine output, BUN and serum creatinine continues to improve, WBC count has continued to trend up after initial fall. Patient has continued to remain afebrile. Her other vitals and labs have been reviewed. Medications: Reviewed: Yes Vitals/I&O/Wt Last Vital Signs Temp 98 F 02/08/21 13:00 Pulse 85 02/08/21 17:00 Resp 17 02/08/21 17:00 BP 130/63 02/08/21 17:00 Pulse Ox 93 02/08/21 17:00 02/08/21 02/08/21 02/08/21 06:59 14:59 22:59 Intake Total 393.25 / 1622.00 450 / 450 Output Total 1010 / 1820 30 / 30 660 / 690 Balance -616.75 / -198.00 420 / 420 -660 / -240 Weight last 48 hrs Weight 49.986 kg Physical Exam Narrative: EXAM NARRATIVE: Alert and awake HENMT: COMMON NORMALS: normocephalic and atraumatic HEAD & SCALP: normocephalic and atraumatic Chest: CHEST: Yes Symmetrical chest wall rise Resp: COMMON NORMALS: clear to auscultation bilaterally EFFORT & INSPECTION: Yes symmetric chest movement AUSCULTATION: clear to auscultation bilaterally OTHER: Coarse breath sounds B/L Cardio: COMMON NORMALS: regular rate, regular rhythm, S1 normal heart sound present, S2 normal heart sound present, No gallops present (Cardio), No murmurs present (Cardio), No rub (Cardio) and Peripheral pulses 2+ throughout RATE: regular rate RHYTHM: regular rhythm HEART SOUNDS: S1 normal heart sound pr esent and S2 normal heart sound present PERIPHERAL PULSES: Peripheral pulses 2+ throughout GI: COMMON NORMALS: Normal to inspection, nondistended, normoactive bowel sounds present, Soft to palpation, non-tender, No hepatosplenomegaly present and no masses AUSCULTATION: Yes normoactive bowel sounds PALPATION: Yes Soft to palpation and Yes No hepatosplenomegaly present RECTAL EXAM: deferred Extremity: COMMON NORMALS: no clubbing, cyanosis or edema and no pedal edema Urinary Catheter Management^: Marie: Cath Placed During This Visit: yes Reason for Continuing Indwelling Catheter: Accurate Measurement of Urinary Output in Critically Ill Patients Urinary Catheter Date of Insertion: 02/04/21 Data : 02/08/21 03:32 02/08/21 03:32 A&P Assessment and plan (1) Shock: Status: Acute (2) Acute kidney injury superimposed on CKD: Status: Acute (3) Respiratory failure with hypoxia and hypercapnia: Status: Acute (4) Pneumothorax: Status: Acute (5) Elevated troponin: Status: Acute (6) High transaminase levels: Status: Acute (7) Metabolic acidosis: Status: Acute (8) Lactic acidosis: Status: Acute (9) Hypernatremia: Status: Acute (10) Acute metabolic encephalopathy: Status: Acute (11) Rhabdomyolysis: Status: Acute Additional A&P Information 80 year old female with no significant PMH was brought in after experiencing fall at home, upon arrival in the ER she was obtunded and was saturating was saturating in 70s was tachypenic as well as she severely hypotensive with SBP in 60s. #Shock : 2/2 Tension pneumothorax, as well as hypovolemic shock, cannot rule out possible contribution from sepsis. MRSA PCR negative Blood culture: 02/17: Coagulase-negative staph Urine culture: GNR : E. coli: Pansensitive Lactic acid: was elevated, Has normalized Procalcitonin: Initially elevated: It is improving : difficult to interpret in the presence of acute kidney injury. Monitor serial chest x-ray S/p right chest tube placement, continue with IV hydration Currently on broad-spectrum antibiotics was on Levophed has been discontinued #LAN on CKD stage III: Multifactorial, ATN secondary to acute hypotension, prerenal, rhabdomyolysis Continue IV hydration Monitor intake output Urine electrolytes Monitor BMP Renal ultrasound: Mild RIGHT renal atrophy. Avoid nephrotoxic Catheter in place Appreciate renal consult #Sepsis Coag negative staph in the blood likely contaminant, gram-negative rods in the urine, currently on Zosyn. She was on Vanco has been discontinued now. #Respiratory failure with hypoxia and hypercapnia: Secondary to tension pneumothorax #Acute metabolic encephalopathy with hypercapnia, uremia #Lactic acidosis: Possibly secondary to severe hypotension, acute ischemia mediated, cannot conclusively rule out contribution from sepsis #Metabolic Acidosis: Secondary to LAN #Transaminitis: Secondary to shock liver secondary to acute hypotension Ultrasound abdomen: no evidence for acute cholecystitis or wall thickening. No bile duct dilatation. Early changes of mild cirrhosis identified. Hepatitis panel: Hepatitis C antibody nonreactive Some contribution from rhabdomyolysis #Hypovolemic hypernatremia: Continue IV hydration with D5 water at 75 cc an hour. Monitor BMP #Rhabdomyolysis: Likely secondary to fall: Improving #UTI : Urine culture gram-negative rods: Pending identification #Elevated troponin: Likely secondary to demand ischemia type II [place]. No acute ST-T wave changes 2D echo: Grossly LV systolic function is normal. RV is dilated.Mild tricuspid regurgitation. RVSP is 45 to 50 mmHg consistent with moderate pulmonary hypertension. Telemetry monitoring Code Status:AND DVT PPX: On Heparin Disposition: intermediate placement, as the patient has significant weakness, and physical deconditioning. Attestations Medical Necessity Statement*: Patient is to be in hospital for management of above defined problems. Time Spent in Patient Care: Greater than 35 minutes Critical Care Time: Critical Care Time (min): 40 Other Attestations: The high probability of a clinically significant, sudden or life threatening deterioration of the patient's [] system(s) required my full and direct attention, intervention and personal management. The critical care time is as shown. This time is in addition to time spent performing any reported procedures but includes the following: [x] Data and vital sign review and interpretation [x] Patient assessment, examination and intervention [x] Documentation [x] Medication orders and management Coding Level of Care Code Acute Anodizer for g Fwd Diagnoses Shock R57.9 Acute kidney injury superimposed on CKD N17.9; N18.9 Respiratory failure with hypoxia and hypercapnia J96.91; J96.92 Pneumothorax J93.9 Elevated troponin R77.8 High transaminase levels R74.01 Metabolic acidosis E87.2 Lactic acidosis E87.2 Hypernatremia E87.0 Acute metabolic encephalopathy G93.41 Rhabdomyolysis M62.82
--- NOTE | 2021-02-08 18:04 | PC.NURSE ---
Shift Note: Pt rested in bed throughout shift. Worked with PT briefly this am, stood at bedside for a few minutes. Her appetite is poor but she does try to nibble at her meals. She denies pain at chest tube insertion site. 40 ml of serous drainage out of chest tube. It has a very slight leak, at times not noticeable. She received acetaminophen for a headache today. Urine output of 650ml ml. Frequent safety and comfort rounds continue. Orders and/or nursing care completed as indicated. Patient monitored for response to intervention and treatment(s). Education provided includes Zosyn, acetaminophen, magnesium, heparin, PT, bed exercises and activity. 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 can be forgetful at times so reinforcement might be needed. . Will continue to monitor.
[2021-02-09] VITALS (25 sets, daily range): BP systolic 123–166; BP diastolic 64–82; PULSE 79–114; RESP 15–28; TEMP 36.4; O2SAT 93–98
[2021-02-09] MEDS: dextrose 5% 1,000 ML 50 ML IV (01:27)
[2021-02-09] MEDS: heparin 5,000 unit/mL INJ 1 mL 5000 UNIT SUBCUT ×2 (05:03→17:47)
[2021-02-09] MEDS: piperacillin-tazobactam 3.375 GM in sodium chloride 0.9% (plus) 50 ML IV ×2 (05:04→17:47)
[2021-02-09] MEDS: acetaminophen 325 mg Tablet 650 MG PO ×2 (05:04→14:18)
[2021-02-09] MEDS: bisacodyl 5 mg Tablet 10 MG PO (05:14)
[2021-02-09 05:45] LABS: Procalcitonin 1.24 ng/mL (0-0.5)
--- NOTE | 2021-02-09 09:12 | XRR_ITS ---
PROCEDURE INFORMATION: Exam: XR Chest Exam date and time: 02/09/2021 9:12 AM Age: 80 years old Clinical indication: Other: Follow up chest tube; Patient HX: Follow up chest tube; Additional info: Lt ptx, S/P lt chest tube placement TECHNIQUE: Imaging protocol: XR of the chest. Views: 1 view. COMPARISON: CR (CHEST, ) 02/08/2021 8:15 AM FINDINGS: Tubes, catheters and devices: Left-sided chest tube remains in satisfactory position. Lungs: The lungs are somewhat hyperinflated with increased interstitial markings, likely representing COPD. No evidence of focal consolidation to suggest pneumonia. Pleural spaces: Unremarkable. No pleural effusion. No pneumothorax. Heart/Mediastinum: Stable cardiomediastinal silhouette. Bones/joints: Unremarkable. XR/XR chest 1V portable [id number] IMPRESSION: 1. Left-sided chest tube in satisfactory position. No pneumothorax. 2. COPD changes.
--- NOTE | 2021-02-09 10:25 | PC.SOCIAL ---
IM follow up explained and copy provided no questions voiced.
--- NOTE | 2021-02-09 11:11 | PM.PN ---
Subjective Subjective: Interval history: No new issues. She remains comfortable. Chest tube still in place. Decent urine output. Minimal extremity edema. Medications: Reviewed: Yes Vitals/I&O/Wt Last Vital Signs Temp 97.7 F 02/08/21 19:00 Pulse 82 02/09/21 09:00 Resp 18 02/09/21 09:00 BP 166/74 02/09/21 09:00 Pulse Ox 95 02/09/21 09:00 02/08/21 02/09/21 02/09/21 22:59 06:59 14:59 Intake Total 50 / 500 1000 / 1500 Output Total 660 / 690 650 / 1340 Balance -610 / -190 350 / 160 Weight last 48 hrs Weight 51.454 kg Weight 49.986 kg Physical Exam Narrative: EXAM NARRATIVE: Constitutional: Awake, comfortable HEENT: Wet mucosa, no jvp, non icteric Lungs: Bilaterally clear without discernible wheeze, rales in all lung zones CVS: S1 S2, no murmurs Abdo: Soft, BS ok Ext 4: Minimal edema, peripheral perfusion with no cyanosis Neurological: Grossly non-focal Urinary Catheter Management^: Marie: Cath Placed During This Visit: yes Reason for Continuing Indwelling Catheter: Accurate Measurement of Urinary Output in Critically Ill Patients Urinary Catheter Date of Insertion: 02/04/21 Data : 02/08/21 03:32 02/08/21 03:32 A&P Additional A&P Information 1. Acute kidney injury Likely related to infection and ischemic ATN. Creatinine stable Avoid usual nephrotoxic agents Dose medication for GFR less than 50 2. Chemistry Well balanced 3. Sepsis Coag negative staph in the blood likely contaminant, gram-negative rods in the urine, currently on antibiotics including Zosyn and status post vancomycin 4. Pneumothorax Chest tube per pulmonary team Slow recovery of renal function at this time. Acute renal issues have thus resolved, will continue to follow peripherally. Thank you for our involvement in her care. Please not hesitate to contact us should we be of further assistance. Griffin Reis MD Nephrology [phone] Patient seen and examined via telemedicine, with the assistance of the bedside RN > 15 min spent in evaluation and mgmt of patient Attestations Medical Necessity Statement*: Eval for LAN Coding Level of Care Code Acute Staple Processing Machine Operator for Chg Manfred
[2021-02-09 11:18] LABS: Basophils % 0.2 %; Eosinophils # 0.2 10^3/uL (0.0-0.8); Eosinophils % 1.6 %; Hemoglobin 11.1 g/dL (11.5-15.3); Lymphocytes # 1.5 10^3/uL (0.8-4.8); Lymphocytes % 10.1 %; Mean Corpuscular HGB Conc 32.6 g/dL (30.0-36.0); Mean Corpuscular Hemoglobin 30.1 pg (28.0-34.0); Mean Corpuscular Volume 92.1 fl (81-99); Mean Platelet Volume 10.8 fL (7.4-10.4); Monocytes # 1.5 10^3/uL (0.2-0.9); Neutrophils # 10.79 10^3/uL (1.8-7.7); Neutrophils % 73.5 %; Nucleated Red Blood Cells % 0.1 %; Platelet Count 163 10^3/cmm (130-400); Red Blood Count 3.69 10^6/uL (4.1-5.3); Red Cell Distribution Width 14.5 % (12.1-15.1); White Blood Count 14.7 10^3/uL (4.0-10.0)
[2021-02-09 11:44] LABS: Blood Urea Nitrogen 62 mg/dL (8-23); Calcium 8.2 mg/dL (8.5-10.5); Carbon Dioxide 27 mmol/L (22-29); Chloride 103 mmol/L (98-107); Glucose 139 mg/dL (65-115); Osmolality Calculated 314 mOsm/kg (285-295); Sodium 142 mmol/L (136-145)
[2021-02-09 11:46] LABS: Anion Gap 15.5 (5-19); Potassium 3.5 mmol/L (3.5-5.1)
--- NOTE | 2021-02-09 15:53 | PC.NURSE ---
Other staff members reported to this nurse that patients was attempting to pull patient out of the chair to transfer back to bed after only being in the chair for 30 minuets. Other staff members assisted patient back to bed and gave instructions to use call light with any needs.
--- NOTE | 2021-02-09 18:12 | PM.PN ---
Subjective Subjective: Interval history: Patient was seen and examined this morning, continues to improve, minimal bubbling present in, Pleur-evac, am chest x-ray has shown resolution of pneumothorax, BUN and serum creatinine has continued to improve, continues to have good urine output. WBC count has trended down.Procalcitonin slightly elevated. Appetite has improved. Patient is participating with physical therapy. Medications: Reviewed: Yes Vitals/I&O/Wt Last Vital Signs Temp 97.5 F L 02/09/21 10:00 Pulse 90 02/09/21 16:00 Resp 20 H 02/09/21 16:00 BP 156/75 02/09/21 16:00 Pulse Ox 97 02/09/21 16:00 02/09/21 02/09/21 02/09/21 06:59 14:59 22:59 Intake Total 1000 / 1500 50 / 50 Output Total 650 / 1340 630 / 630 Balance 350 / 160 50 / 50 -630 / -580 Weight last 48 hrs Weight 51.454 kg Weight 49.986 kg Physical Exam Narrative: EXAM NARRATIVE: Alert and awake HENMT: COMMON NORMALS: normocephalic and atraumatic HEAD & SCALP: normocephalic and atraumatic Chest: CHEST: Yes Symmetrical chest wall rise Resp: COMMON NORMALS: clear to auscultation bilaterally EFFORT & INSPECTION: Yes symmetric chest movement AUSCULTATION: clear to auscultation bilaterally Cardio: COMMON NORMALS: regular rate, regular rhythm, S1 normal heart sound present, S2 normal heart sound present, No gallops present (Cardio), No murmurs present (Cardio), No rub (Cardio) and Peripheral pulses 2+ throughout RATE: regular rate RHYTHM: regular rhythm HEART SOUNDS: S1 normal heart sound present and S2 normal heart sound present PERIPHERAL PULSES: Peripheral pulses 2+ throughout GI: COMMON NORMALS: Normal to inspection, nondistended, normoactive bowel sounds present, Soft to palpation, non-tender, No hepatosplenomegaly present and no masses AUSCULTATION: Yes normoactive bowel sounds PALPATION: Yes Soft to palpation and Yes No hepatosplenomegaly present RECTAL EXAM: deferred Extremity: COMMON NORMALS: no clubbing, cyanosis or edema and no pedal edema Urinary Catheter Management^: Marie: Cath Placed During This Visit: yes Reason for Continuing Indwelling Catheter: Accurate Measurement of Urinary Output in Critically Ill Patients Urinary Catheter Date of Insertion: 02/04/21 Data : 02/09/21 10:54 02/09/21 10:54 Micro: Microbiology 02/04/21 15:34 Blood Culture - Final Blood Coagulase negativ staphylococc 02/04/21 15:26 Blood Culture - Final Blood NO GROWTH AFTER 5 DAYS A&P Assessment and plan (1) Shock: Status: Acute (2) Acute kidney injury superimposed on CKD: Status: Acute (3) Respiratory failure with hypoxia and hypercapnia: Status: Acute (4) Pneumothorax: Status: Acute (5) Elevated troponin: Status: Acute (6) High transaminase levels: Status: Acute (7) Metabolic acidosis: Status: Acute (8) Lactic acidosis: Status: Acute (9) Hypernatremia: Status: Acute (10) Acute metabolic encephalopathy: Status: Acute (11) Rhabdomyolysis: Status: Acute Additional A&P Information 80 year old female with no significant PMH was brought in after experiencing fall at home, upon arrival in the ER she was obtunded and was saturating was saturating in 70s was tachypenic as well as she severely hypotensive with SBP in 60s. #Shock : 2/2 Tension pneumothorax, as well as hypovolemic shock, cannot rule out possible contribution from sepsis. MRSA PCR negative Blood culture: 02/17: Coagulase-negative staph Urine culture: GNR : E. coli: Pansensitive Lactic acid: was elevated, Has normalized Procalcitonin: Initially elevated: It is improving : difficult to interpret in the presence of acute kidney injury. Monitor serial chest x-ray S/p right chest tube placement, continue with IV hydration Currently on broad-spectrum antibiotics was on Levophed has been discontinued #LAN on CKD stage III: Multifactorial, ATN secondary to acute hypotension, prerenal, rhabdomyolysis Continue IV hydration Monitor intake output Urine electrolytes Monitor BMP Renal ultrasound: Mild RIGHT renal atrophy. Avoid nephrotoxic Catheter in place Appreciate renal consult #Sepsis Coag negative staph in the blood likely contaminant, gram-negative rods in the urine, on Zosyn. Will complete 7-day course. She was on Vanco has been discontinued now. #Respiratory failure with hypoxia and hypercapnia: Secondary to tension pneumothorax #Acute metabolic encephalopathy with hypercapnia, uremia #Lactic acidosis: Possibly secondary to severe hypotension, acute ischemia mediated, cannot conclusively rule out contribution from sepsis #Metabolic Acidosis: Secondary to LAN #Transaminitis: Secondary to shock liver secondary to acute hypotension Ultrasound abdomen: no evidence for acute cholecystitis or wall thickening. No bile duct dilatation. Early changes of mild cirrhosis identified. Hepatitis panel: Hepatitis C antibody nonreactive Some contribution from rhabdomyolysis #Hypovolemic hypernatremia: Continue IV hydration with D5 water at 75 cc an hour. Monitor BMP #Rhabdomyolysis: Likely secondary to fall: Improving #UTI : Urine culture gram-negative rods: Pending identification #Elevated troponin: Likely secondary to demand ischemia type II [place]. No acute ST-T wave changes 2D echo: Grossly LV systolic function is normal. RV is dilated.Mild tricuspid regurgitation. RVSP is 45 to 50 mmHg consistent with moderate pulmonary hypertension. Telemetry monitoring Code Status:AND DVT PPX: On Heparin Disposition: halfway placement, as the patient has significant weakness, and physical deconditioning. Attestations Medical Necessity Statement*: Patient needs to be in the hospital for management above defined problems. Coding Level of Care Code Acute Customer Manager for Elsie Shearer Diagnoses Shock R57.9 Acute kidney injury superimposed on CKD N17.9; N18.9 Respiratory failure with hypoxia and hypercapnia J96.91; J96.92 Pneumothorax J93.9 Elevated troponin R77.8 High transaminase levels R74.01 Metabolic acidosis E87.2 Lactic acidosis E87.2 Hypernatremia E87.0 Acute metabolic encephalopathy G93.41 Rhabdomyolysis M62.82
[2021-02-10] VITALS: BP 111/80; PULSE 121; RESP 23; O2SAT 98
[2021-02-10 01:00] VITALS: BP 101/61; PULSE 127; RESP 23; O2SAT 97
[2021-02-10 02:00] VITALS: BP 108/65; PULSE 126; RESP 24; O2SAT 97
--- NOTE | 2021-02-10 02:19 | XRR_ITS ---
PROCEDURE INFORMATION: Exam: XR Chest Exam date and time: 02/10/2021 2:19 AM Age: 80 years old Clinical indication: Dyspnea; Additional info: SOB TECHNIQUE: Imaging protocol: XR of the chest. Views: 1 view. COMPARISON: CR XR chest 1V portable [id number] 02/09/2021 10:07 AM FINDINGS: Tubes, catheters and devices: There is stable position of the left thoracostomy tube. Lungs: The lungs are hyperinflated compatible with COPD changes. Pleural spaces: Unremarkable. No pleural effusion. No pneumothorax. Heart/Mediastinum: Unremarkable. No cardiomegaly. Bones/joints: Unremarkable. XR/XR chest 1V portable [id number] IMPRESSION: 1. Stable placement of a left thoracostomy tube. 2. Hyperinflation of the lungs compatible with COPD changes. 3. There is no evidence for pneumothorax.
[2021-02-10 02:29] LABS: ABG PCO2 32.6 mmHg (35-45); ABG PH Result 7.24 (7.35-7.45); Alveolar-Arterial Oxygen Gradi 0.8 mmHg (5-10); Arterial Blood Gas Hematocrit 30.5 % (37-47); Base Excess ABG -12.6 mmol/L (-2.0-2.0); Blood Gas Allen Test Pos; Blood Gas Sample Site Radial, left; Blood Gas Sample Type Arterial; Carboxyhemoglobin 0.3 %THgb (0.4-20.1); HCO3 ABG 13.8 mmol/L (22-26); HGB O2 Sat 95.5 % (95-100); Ionized Calcium Level - ABG 1.3 mmol/L (1.1-1.4); Methemoglobin 0.8 % (0.4-1.5); Oxygen Device NC; Oxygen Saturation ABG 96.6; Potassium Level - ABG 4.8 mmol/L (3.5-5.0); Total Hemoglobin 9.9 g/dL (12-16)
--- NOTE | 2021-02-10 02:30 | CTR_ITS ---
PROCEDURE INFORMATION: Exam: CT Head Without Contrast Exam date and time: 02/10/2021 2:30 AM Age: 80 years old Clinical indication: Altered mental status/memory loss; Other: Non responsive; Additional info: PT not responding TECHNIQUE: Imaging protocol: Computed tomography of the head without contrast. Radiation optimization: All CT scans at this facility use at least one of these dose optimization techniques: automated exposure control; mA and/or kV adjustment per patient size (includes targeted exams where dose is matched to clinical indication); or iterative reconstruction. COMPARISON: CT head wo con* [id number] 08/29/2018 3:34 PM RADIATION DOSE METRICS: Total DLP (mGy-cm): 787.38 FINDINGS: Brain: There is moderate diffuse cerebral atrophy. Patchy areas of hypoattenuation are seen in the deep white matter of the cerebral hemispheres bilaterally compatible with deep white matter microvascular disease. Cerebral ventricles: No ventriculomegaly. Paranasal sinuses: Visualized sinuses are unremarkable. No fluid levels. Mastoid air cells: Minimal fluid is seen within left mastoid sinuses. Bones/joints: Unremarkable. No acute fracture. Soft tissues: Unremarkable. CT/CT head wo con* [id number] IMPRESSION: There are no acute intracranial findings. Stable head CT compared with 08/29/2018.
[2021-02-10 02:44] LABS: Glucose Point of Care 111 mg/dL (70-110)
[2021-02-10] MEDS: morphine 4 mg/mL SDV 1 mL IVP (03:37)
--- NOTE | 2021-02-10 04:19 | PC.NURSE ---
Addendum entered by Nelia Sanchez RN 02/10/21 04:39: 03:54 second nurse verify Original Note: Pt placed on comfort care. Asystole noted on monitor. This nurse verified no pulse and no heartbeat. STEVE Trinh was asked to second verify. Family informed. informed. [facility] called, pt not a candidate for organ donation. Body release signed by . home contacted.
[2021-02-11 13:23] LABS: ANCA Screen NEGATIVE (NEGATIVE)
[2021-02-11 13:37] LABS: Anti-Double Strand DNA AB <1 IU/mL
--- NOTE | 2021-02-16 11:14 | P.DES_ITS ---
Discharge Providers DDS Date of Admission: 02/04/21 16:36 Date Summary Completed: 02/16/21 Attending Provider at Admission: Mason Green MD Time of : 03:54 Attending Provider at Discharge: Mason Green MD DS Diagnoses Hospital Diagnoses (1) Shock: (2) Acute kidney injury superimposed on CKD: (3) Respiratory failure with hypoxia and hypercapnia: (4) Pneumothorax: (5) Elevated troponin: (6) High transaminase levels: (7) Metabolic acidosis: (8) Lactic acidosis: (9) Hypernatremia: (10) Acute metabolic encephalopathy: (11) Rhabdomyolysis: Reason for Visit Reason for Visit: AMS, DIFF BREATHING Summary Date and Time of Date of : 02/10/21 Time of : 03:54 Summary Summary: 80 year old female with no significant PMH was brought in after experiencing fall at home, upon arrival in the ER she was obtunded and was saturating in 70s was tachypenic as well as she severely hypotensive with SBP in 60s.Further work up revealed that she is in shock multifactorial ( Tension PTX, Hypovolemic as well as distributive-sepsis ) with multi organ involvement ( LAN,Shock liver, Type II M.I ).Lt side chest tube was placed in the ER with good results complete resolution of PTX resultant improvement in saturation and resolution of respir atory distress as well as improvement in other hydrodynamic parameters a the same time volume resuscitations well as Abxs institution was also done,LAN was imroving, she was off vasopressors,liver function test was also improving,she was saturating well on minimum supplemental oxygen,serial xray chest were done during the hospital stay which showed minimum to complete resolution of Lt sided PTX,she was clinically doing well and had started participating with physical therapy,she was at her baseline mentation and arrangements were made for being discharge to custodial s she was extremely weak after chest tube removal,CTS was on board.Unfortunately her clinical condition rapidly detoriated on the night of 02/09 when she had Acute G/I Bleed,She was prophylactic subcutaneous heparin. which resulted in she being severely hypotensive, xray chest as well as C.T head without contrast done at that time was normal.She was placed on multiple vasopressors family was informed,but due to worseing hemodynamic status they decided to make her comfort care.She on 02/10/2021 TOD : 03:54 AM. Additional Data Confirmation of as documented by pronouncing clinician: no pulse, no respirations, no heart sounds and pupils fixed and dilated Family: at bedside Additional persons at bedside: nursing staff Attending/PCP notified?: I am attending Was code activated?: No Autopsy requested?: No Advance directives?: No Hospice patient?: No Discharge Plan Discharge Patient Disposition: Condition: Prescriptions: No Action diclofenac sodium 100 mg tablet extended release 24 hr 100 mg PO DAILY RF: 0 prednisone 20 mg tablet 20 mg PO DAILY RF: 0 potassium chloride 20 mEq tablet,ER particles/crystals 20 meq PO DAILY RF: 0 paroxetine HCl 30 mg tablet 30 mg PO DAILY RF: 0 Ventolin HFA 90 mcg/actuation HFA aerosol inhaler 2 puff INHALATION Q6H PRN (Reason: Shortness Of Breath) RF: 0 DS Attestations Time Spent in /Discharge Care*: less than 30 min Quality - AMI: AMI present?: No Quality - Stroke: CVA present?: No Quality - VTE: VTE present?: No Deep Vein Thrombosis/Pulmonary Embolism Present on Admission: No Coding Level of Care Code Acute Compressor Operator Adjuster for Chg Fwd Diagnoses Shock R57.9 Acute kidney injury superimposed on CKD N17.9; N18.9 Respiratory failure with hypoxia and hypercapnia J96.91; J96.92 Pneumothorax J93.9 Elevated troponin R77.8 High transaminase levels R74.01 Metabolic acidosis E87.2 Lactic acidosis E87.2 Hypernatremia E87.0 Acute metabolic encephalopathy G93.41 Rhabdomyolysis M62.82
== END 2021-02-10 06:26 | disposition expired | DRG 871 ==
LOC: ER 14:36 → ICU 17:50
PROVIDERS: Emergency Medicine; Hospitalist; Internal Medicine Nephrology; Admitting Provider Internal Medicine; Emergency Provider Family Medicine; Visit Provider Internal Medicine
DX: A41.9 Sepsis, unspecified organism (principal); R65.21 Severe sepsis with septic shock; J93.0 Spontaneous tension pneumothorax; N17.0 Acute kidney failure with tubular necrosis; J96.92 Respiratory failure, unspecified with hypercapnia; J96.91 Respiratory failure, unspecified with hypoxia; G93.41 Metabolic encephalopathy; I21.A1 Myocardial infarction type 2; K72.00 Acute and subacute hepatic failure without coma; E87.4 Mixed disorder of acid-base balance; M62.82 Rhabdomyolysis; E87.0 Hyperosmolality and hypernatremia; K92.2 Gastrointestinal hemorrhage, unspecified; N39.0 Urinary tract infection, site not specified; W19.XXXA Unspecified fall, initial encounter; F32.A Depression, unspecified; N18.30 Chronic kidney disease, stage 3 unspecified; I95.9 Hypotension, unspecified; F03.90 Unspecified dementia, unspecified severity, without behavioral disturbance, psychotic disturbance, mood disturbance, and anxiety; R57.1 Hypovolemic shock; J98.2 Interstitial emphysema; Z51.5 Encounter for palliative care; B96.20 Unspecified Escherichia coli [E. coli] as the cause of diseases classified elsewhere
CPT/HCPCS: 32551; 36415; 36416; 36600; 51702; 70450; 71045; 76700; 76705; 80048; 80051; 80053; 80202; 81001; 82306; 82310; 82330; 82436; 82550; 82652; 82805; 82962; 83516; 83520; 83605; 83690; 83735; 83970; 84100; 84133; 84145; 84300; 84484; 84550; 85007; 85025; 85378; 86038; 86225; 86803; 87040; 87077; 87086; 87186; 87205; 87635; 87641; 87804; 93005; 93306; 94640; 94660; 96365; 96366; 96367; 96372; 96375; 97110; 97163; 97166; 97530; 99291; J0610; J1644; J1940; J2270; J2405; J2543; J3010; J3370; J3475; J7030; J7050; J7611; J7799; Q3014